=== PATIENT | male | born 1950 | race American Indian/Alaskan Native ===

== ENCOUNTER 2016-12-14 20:56 | Emergency (ER) | payer MEDICARE ==
[2016-12-14] MEDS ORDERED: BENADRYL IV ONE (21:56)
[2016-12-14] MEDS ORDERED: PEPCID IV ONE (21:56)
--- NOTE | 2016-12-14 21:57 | Emergency Department Report ---
ED General Adult HPI - General Chief complaint: Allergic Reaction Stated complaint: BEE STINGS Time Seen by Provider: 12/14/16 21:16 Source: patient, RN notes reviewed Mode of arrival: Ambulatory Limitations: No Limitations - History of Present Illness Initial comments: Primary care Dr.: Dr. Yael Scales This is a 66-year-old male. He is previously unknown to me. He presented to the ER with multiple insect stings which he sustained a few hours prior to presentation. Past medical history includes depression, neuropathy, parkinsonism, hypertension, high cholesterol. He denies headache, neck pain, chest pain, abdominal pain and shortness of breath. He reports multiple stings on his back, neck, legs. There is specifically no stridor, dysphonia, difficulty speaking, difficulty breathing. He has been stung by yellow jackets in the past, denies a history of anaphylaxis. No other complaints. -: Sudden Location: back, left, right, upper extremity, lower extremity Severity scale (0 -10): 10 Quality: other (stinging) Consistency: constant Improves with: none Worsens with: none Associated Symptoms: denies other symptoms - Related Data Home Medications Medication Instructions Recorded Confirmed Last Taken Carbidopa/Levodopa 25-100 [Sinemet 1 tab PO TID 05/15/14 12/14/16 Unknown 25/100] Gabapentin [Gabapentin] 1 tab PO TID 05/15/14 12/14/16 Unknown Paroxetine HCl [Paroxetine] 1 tab PO DAILY 05/15/14 12/14/16 Unknown oxyCODONE /ACETAMINOPHEN [Percocet 1 tab PO TID PRN 12/14/16 12/14/16 Unknown 5/325] Previous Rx's Medication Instructions Recorded Last Taken Type EPINEPHrine [Epipen 2-Aldair] 0.3 mg IM DAILY PRN #2 ml 12/14/16 Unknown Rx Famotidine [Pepcid] 20 mg PO BID #10 tablet 12/14/16 Unknown Rx diphenhydrAMINE [Benadryl] 50 mg PO Q8HR PRN #20 capsule 12/14/16 Unknown Rx Allergies Allergy/AdvReac Type Severity Reaction Status Date / Time No Known Allergies Allergy Unverified 05/16/13 10:42 ED Review of Systems ROS: Stated complaint: BEE STINGS Other details as noted in HPI Constitutional: denies: fever, malaise Eyes: denies: vision change ENT: denies: epistaxis Respiratory: denies: cough Cardiovascular: denies: chest pain Gastrointestinal: denies: abdominal pain Genitourinary: as per HPI Skin: rash, lesions Psychiatric: as per HPI ED Past Medical Hx - Past Medical History Previous Medical History?: Yes Hx Hypertension: Yes Hx Diabetes: No Hx Arthritis: Yes Additional medical history: high cholesterol. mild depression. ulcers. neuropathy. Parkinsons - Surgical History Past Surgical History?: Yes Hx Cholecystectomy: Yes Additional Surgical History: bilateral rotater cuff repair - Social History Smoking Status: Never Smoker Substance Use Type: None - Medications Home Medications: Home Medications Medication Instructions Recorded Confirmed Last Taken Type Carbidopa/Levodopa 25-100 [Sinemet 1 tab PO TID 05/15/14 12/14/16 Unknown History 25/100] Gabapentin [Gabapentin] 1 tab PO TID 05/15/14 12/14/16 Unknown History Paroxetine HCl [Paroxetine] 1 tab PO DAILY 05/15/14 12/14/16 Unknown History EPINEPHrine [Epipen 2-Aldair] 0.3 mg IM DAILY PRN #2 ml 12/14/16 Unknown Rx Famotidine [Pepcid] 20 mg PO BID #10 tablet 12/14/16 Unknown Rx diphenhydrAMINE [Benadryl] 50 mg PO Q8HR PRN #20 capsule 12/14/16 Unknown Rx oxyCODONE /ACETAMINOPHEN [Percocet 1 tab PO TID PRN 12/14/16 12/14/16 Unknown History 5/325] ED Physical Exam - General Limitations: No Limitations General appearance: alert, in no apparent distress - Head Head exam: Present: atraumatic, normocephalic - Eye Eye exam: Present: normal appearance, EOMI - ENT ENT exam: Present: normal exam, normal orophraynx, mucous membranes moist, normal external ear exam, other (there is no stridor or dysphonia. The patient is speaking in full sentences. There is no respiratory distress.) - Neck Neck exam: Present: normal inspection, full ROM. Absent: tenderness, meningismus - Respiratory Respiratory exam: Present: normal lung sounds bilaterally. Absent: respiratory distress, wheezes, rales, rhonchi, stridor, chest wall tenderness, accessory muscle use, decreased breath sounds, prolonged expiratory - Cardiovascular Cardiovascular Exam: Present: regular rate, normal rhythm, normal heart sounds. Absent: bradycardia, tachycardia, irregular rhythm, systolic murmur, diastolic murmur, rubs, gallop - GI/Abdominal GI/Abdominal exam: Present: soft, normal bowel sounds. Absent: distended, tenderness, guarding, rebound, rigid, pulsatile mass - Rectal Rectal exam: Present: deferred - Extremities Exam Extremities exam: Present: normal inspection, full ROM, normal capillary refill. Absent: tenderness, pedal edema, joint swelling, calf tenderness - Back Exam Back exam: Present: normal inspection, full ROM. Absent: tenderness, CVA tenderness (R), CVA tenderness (L), muscle spasm, paraspinal tenderness, vertebral tenderness - Neurological Exam Neurological exam: Present: alert, oriented X3, other (Extraocular movements intact. Tongue midline. No facial droop. Facial sensation intact to light touch in the V1, V2, V3 distribution bilaterally. 5 and 5 strength in 4 extremities.. Sensation is intact to light touch in 4 extremities.). Absent: motor sensory deficit - Psychiatric Psychiatric exam: Present: normal affect, normal mood - Skin Skin exam: Present: warm, rash, erythema, other (multiple areas of nontender blanching erythema. There is no streaking, crepitus or pus. No visualized fingers are noted in the skin.) ED Course Vital Signs 12/14/16 12/14/16 12/14/16 20:59 21:07 21:12 Temperature 98.7 F 98.7 F Pulse Rate 114 H 114 H 91 H Respiratory 22 22 22 Rate Blood Pressure 131/91 Blood Pressure 131/91 [Right] O2 Sat by Pulse 94 94 Oximetry 12/14/16 12/14/16 12/14/16 21:21 21:30 21:41 Temperature Pulse Rate 102 H 91 H 91 H Respiratory 29 H 20 24 Rate Blood Pressure 133/88 137/83 137/83 Blood Pressure [Right] O2 Sat by Pulse 94 95 95 Oximetry 12/14/16 12/14/16 12/14/16 21:51 22:00 22:11 Temperature Pulse Rate 89 87 81 Respiratory 20 24 14 Rate Blood Pressure 137/83 142/85 142/85 Blood Pressure [Right] O2 Sat by Pulse 94 94 97 Oximetry 12/14/16 12/14/16 12/14/16 22:21 22:30 22:41 Temperature Pulse Rate 83 83 84 Respiratory 15 26 H 23 Rate Blood Pressure 142/85 155/87 155/87 Blood Pressure [Right] O2 Sat by Pulse 97 96 96 Oximetry 12/14/16 12/14/16 22:51 23:01 Temperature Pulse Rate 84 83 Respiratory 24 25 H Rate Blood Pressure 143/88 143/88 Blood Pressure [Right] O2 Sat by Pulse 96 96 Oximetry - Reevaluation(s) Reevaluation #1: 12/14/16 22:07 Differential diagnosis: Multiple insect stings Assessment and plan: 66-year-old male with multiple insect stings. He has no stridor or dysphonia, he is not wheezing. Multiple areas of localized erythema all of which are nontender and blanching, most likely consistent with mild localized reaction. Given her advanced age, I believe the patient requires steroids, especially given the risk of steroid psychosis, hyperglycemia, and osteoporosis/fracture. This is discussed with the patient and his , and through shared decision making we agreed to not give steroids. The patient is somewhat pleuritic, and will be given Pepcid and Benadryl for symptom relief. We will observe him. His tachycardia has resolved. He has no complaint of airway collapse, and there is no clinical evidence of stridor or dysphonia. Reevaluation #2: 12/14/16 22:57 reassessed. Heart rate 84 bpm. Blood pressure 155/87. Feels improved. Patient will be discharged. Return precautions are reviewed. patient and family verbalized understanding. Critical care attestation.: If time is entered above; I have spent that time in minutes in the direct care of this critically ill patient, excluding procedure time. ED Disposition Clinical Impression: Insect sting Disposition: DC-01 TO HOME OR SELFCARE Is pt being admited?: No Does the pt Need Aspirin: No Condition: Stable Instructions: Insect Bite or Sting (ED) Additional Instructions: Take the medications as directed. If taking the Benadryl, do not drive, consume alcohol, or make important decisions. Use the epinephrine pen only if you develop the inability to speak, or bruits. If taking the epinephrine pen, contact 911 right away. Please avoid exposure to insects. Follow up with your primary care doctor within the next 2-3 weeks. Return to the ER right away with inability to speak, inability to breathe, fevers, chills, chest pain, shortness of breath, confusion. Prescriptions: diphenhydrAMINE [Benadryl] 50 mg PO Q8HR PRN #20 capsule PRN Reason: Allergic Reaction EPINEPHrine [Epipen 2-Aldair] 0.3 mg IM DAILY PRN #2 ml PRN Reason: Allergic Reaction Famotidine [Pepcid] 20 mg PO BID #10 tablet Referrals: PRIMARY CARE, [Primary Care Provider] - 3-5 Days WENDI SCALES MD [Staff Physician] - 3-5 Days
[2016-12-14 23:02] VITALS: BP 143/88
== END 2016-12-14 23:35 | disposition home or self-care (01) ==
LOC: ED 20:56
DX: S20.469A Insect bite (nonvenomous) of unspecified back wall of thorax, initial encounter (principal); S80.862A Insect bite (nonvenomous), left lower leg, initial encounter; S80.861A Insect bite (nonvenomous), right lower leg, initial encounter; S10.96XA Insect bite of unspecified part of neck, initial encounter; I10 Essential (primary) hypertension; W57.XXXA Bitten or stung by nonvenomous insect and other nonvenomous arthropods, initial encounter; Y93.9 Activity, unspecified; Y92.9 Unspecified place or not applicable; Y99.9 Unspecified external cause status
CPT/HCPCS: 96374; 96375; 99282; J1200

== ENCOUNTER 2017-04-06 06:04 | Day surgery (SDC) | payer MEDICARE ==
[~2017-04-06 06:04] MED LIST: TETRACAINE 0.5% OD PRN
[2017-04-06] MEDS ORDERED: TETRACAINE 0.5% OD ONE (06:39)
[2017-04-06] MEDS: VIGAMOX OD SCH ×3 (07:25→07:35)
[2017-04-06] MEDS: MYDRIACYL OD SCH ×3 (07:25→07:35)
[2017-04-06] MEDS: AK-Dilate OD SCH ×3 (07:25→07:35)
--- NOTE | 2017-04-06 07:41 | Anesthesia Consultation ---
Anesthesia Consult and Med Hx Date of service: 04/06/17 - Airway Anesthetic Teeth Evaluation: Poor ROM Head & Neck: Inadequate Mental/Hyoid Distance: Adequate Mallampati Class: Class III Intubation Access Assessment: Possibly Difficult - Pulmonary Exam CTA: Yes - Cardiac Exam Cardiac Exam: RRR - Pre-Operative Health Status ASA Pre-Surgery Classification: ASA3 Proposed Anesthetic Plan: MAC - Pre-Anesthesia Comment Pre-Anesthesia Comments: Parkensons disease. - Pulmonary Hx Smoking: No Hx Sleep Apnea: No (STEFANI PRE SCREEN LOW RISK) - Cardiovascular System Hx Hypertension: No - Central Nervous System Hx Back Pain: Yes - Other Systems Hx Cancer: No
--- NOTE | 2017-04-06 07:42 | Anesthesia Day of Surgery ---
Anesthesia Day of Surgery - Day of Surgery Patient Examined: Yes Patient H&P Reviewed: Yes Patient is NPO: Yes
[2017-04-06] MEDS ORDERED: SUBLIMAZE ONE (08:09)
[2017-04-06] MEDS ORDERED: VERSED ONE (08:09)
[2017-04-06] MEDS ORDERED: PRED FORTE 1% OD SCH (08:56)
--- NOTE | 2017-04-06 08:58 | Operative Report ---
Operative Report Operative Report: PATIENT'S NAME: DATE OF : DATE OF SURGERY: 04/06/2017 PREOPERATIVE DIAGNOSIS: Cataract right eye POSTOPERATIVE DIAGNOSIS: Same OPERATIVE PROCEDURE: Phacoemulsification with intraocular lens implantation, right eye SURGEON: Larissa Reynolds M.D. DIRECTOR TECHNICAL SURGEON: Alan Lens: [id number] 23.0 D ANESTHESIA: Monitored anesthesia care in combination with topical and intracameral anesthesia because of the established specific risk of reflux, arrhythmias, or anxiety attacks associated with ocular manipulation, as well as the difficulty of the warm in to manage such potentially catastrophic events while simultaneously attempting to complete the surgical procedure and was deemed necessary for the patient's safety to have an Waistband Setter Lockstitch present during the procedure whenever possible. An Waistband Setter Lockstitch was utilized to regulate the intravenous sedation of the patient so the patient was cooperative yet not asleep in order for the patient to successfully maintain fixation of the eye on the operating light of the microscope. COMPLICATIONS: No surgical complications No blood loss. ALLERGIES: No known drug allergies PROGNOSIS: Excellent INDICATIONS FOR SURGERY: The patient is undergoing surgery in the hopes of eliminating or improving these visual difficulties. PROCEDURE: After arriving at the surgery center, the patient was given topical anesthetic and dilating drops, as noted in the record. The patient was then taken into the operating room and given more anesthetic drops. The eyelids , lashes, and lid margins were scrubbed with Betadine solution, and the patient was draped. The Nurse Waistband Setter Lockstitch administered IV sedation and monitored the patient during the procedure. The eye was then fixated with a 0.12, and a stab incision was made in the peripheral clear cornea into the anterior chamber. This was made on my left side. Viscoelastic was next used to fill the anterior chamber. The eye was once again fixated with the 0.12 forceps and a keratome was used make an incision in clear cornea peripherally on my right hand side temporally. The capsule forceps were used to open the central anterior capsule and then make a continuous round capsulotomy. Hydrodissection was carried out utilizing a cannula and balanced salt solution to delineate the cortical material from the capsule and the nucleus from the cortical material. The phaco tip was introduced into the eye and used to remove the anterior cortical material in the area of the capsulotomy. Then the phaco tip was buried into the nucleus, and a chopping instrument was introduced into the eye and used to provide countertraction in the nucleus between this instrument and the phaco tip fracturing the nucleus. This procedure was repeated multiple times, providing multiple small segments of the lens, and then the phaco tip was used to remove each of these segments. An I/A tip was then used to remove the remaining cortex. The anterior chamber was refilled with viscoelastic. An one-piece, acrylic intraocular lens was then placed into an inserting cartridge. The tip of the inserting cartridge was introduced into the keratome incision and into the anterior chamber. The implant was gently advanced through the cartridge and into the eye, where it unfolded, and both haptics were placed in the capsular bag, where it centered nicely and appeared to be well fixated. After placement of the intraocular lens, the I~and~A handpiece was placed back into the eye and used to remove the viscoelastic, including viscoelastic that was behind the optic of the intraocular lens. The anterior chamber was then filled with balanced salt solution, and hydration of the wound was used to cause swelling of the wound and more appropriate watertight closure. When the wound was found to be firm, the patient was asked to comment on how bright the light was. If there was no light perception at all or if the light was substantially dimmer than during the rest of the surgery, the amount of fluid in the eye was decompressed to lower the intraocular pressure until the patient could see the bright light again. This was done to avoid any damage or decreased blood flow to the optic nerve. MEDICATIONS APPLIED AT END OF SURGERY: One drop of Pred Forte and Vigamox The patient was given a shield to wear at night and was instructed not to rub or push on the eye. DISCHARGE SUMMARY: The patient was released in stable condition. The patient and those with the patient were given a written sheet of postoperative instructions and counseling on any abnormal laboratory studies. The patient is to see us tomorrow for follow-up in the office and is to call immediately for any difficulties. Larissa Reynolds M.D. Date
--- NOTE | 2017-04-06 08:59 | Short Stay Summary ---
Short Stay Documentation Date of service: 04/06/17 - History H&P: obtained from office - Allergies and Medications Current Medications: Allergies No Known Allergies Allergy (Verified 04/03/17 15:28) Home Medications Medication Instructions Recorded Confirmed Last Taken Type Carbidopa/Levodopa 25-100 [Sinemet 1 tab PO TID 05/15/14 04/03/17 Unknown History 25/100] Gabapentin [Gabapentin] 300 mg PO TID 05/15/14 04/03/17 Unknown History Paroxetine HCl [Paroxetine] 40 mg PO DAILY 05/15/14 04/03/17 Unknown History oxyCODONE /ACETAMINOPHEN [Percocet 1 tab PO PRN PRN 12/14/16 04/03/17 Unknown History 5/325] Active Medications Moxifloxacin HCl (Vigamox) 1 drops OD Q5MIN MAGALIS Stop: 04/08/17 06:01 Last Admin: 04/06/17 07:35 Dose: 1 drops Phenylephrine HCl (Ak-Dilate) 1 drops OD Q5MIN MAGALIS Stop: 04/08/17 06:01 Last Admin: 04/06/17 07:35 Dose: 1 drops Prednisolone Acetate (Pred Forte 1%) 1 drops OD ONCE MAAGLIS Stop: 04/06/17 23:59 Tropicamide (Mydriacyl) 1 drops OD Q5MIN MAGALIS Stop: 04/08/17 06:01 Last Admin: 04/06/17 07:35 Dose: 1 drops - Brief post op/procedure progress note Date of procedure: 04/06/17 Pre-op diagnosis: right cataract Post-op diagnosis: same Procedure: Phacoemulsification with intraocular lens insertion right eye Anesthesia: MAC Surgeon: MAIN VELASQUEZ Estimated blood loss: none Pathology: none Condition: stable - Disposition Condition at discharge: Good Disposition: DC-01 TO HOME OR SELFCARE - Discharge Diagnoses (1) Cataract Status: Acute Qualifiers: Cataract type: age-related Age-related cataract type: nuclear Infantile/ juvenile cataract type: I Traumatic cataract type: T Complicated cataract type: C Secondary cataract type: S Laterality: right Qualified Code(s): H25.11 - Age-related nuclear cataract, right eye Short Stay Discharge Plan Additional Instructions: DR. VELASQUEZ'S POST OP INSTRUCTIONS GIVEN. Follow up with: WENDI SCALES MD [Primary Care Provider] - 7 Days Forms: Outpatient Surgery DC Inst.
--- NOTE | 2017-04-06 09:00 | Post Anesthesia Evaluation ---
- Post Anesthesia Evaluation Patient Participated: Yes Airway Patent: Yes Stable Respiratory Function: Yes Temp > 96.8F: Yes Pain Manageable: Yes Adequeate Hydration: Yes Anesthesia Complications: No
[2017-04-06 09:28] VITALS: BP 152/80
[2017-04-06] MEDS ORDERED: PRED FORTE 1% ONE (13:07)
== END 2017-04-06 09:20 | disposition home or self-care (01) ==
LOC: OR 06:04
DX: H25.11 Age-related nuclear cataract, right eye (principal); M19.90 Unspecified osteoarthritis, unspecified site; G20 Parkinson's disease
CPT/HCPCS: 66984; J2250; J3010; V2632

== ENCOUNTER 2018-11-17 18:00 | Emergency (ER) | payer MEDICARE ==
[2018-11-17 18:08] VITALS: BP 148/78
--- NOTE | 2018-11-17 18:08 | Emergency Department Report ---
Blank Doc - Documentation Documentation: 68 y o male presents with left sided shoulder back pain x after he had been in the yard working admits arthritis of left hip denies fall, trauma or injuries
--- NOTE | 2018-11-17 18:57 | XRay Report ---
PROCEDURE: XR HIP 2-3V LT TECHNIQUE: AP view of the pelvis and single cone-down view of the left hip. HISTORY: LT HIP pain COMPARISONS: None . FINDINGS: No evidence for acute fracture or dislocation is seen. The soft tissues are unremarkable. Bony minera lization is normal. There is severe [id number] joint space narrowing in the right hip superiorly related to osteoarthri tis. IMPRESSION: No acute soft tissue or bony abnormality noted in the left hip. Severe [id number] joint space narro wing of the right hip related to arthritis This document is electronically signed by Anel Patel MD., November 17 2018 06:54:49 PM ET
[2018-11-17] MEDS ORDERED: DECADRON IM ONE (19:02)
[2018-11-17] MEDS ORDERED: TORADOL IM ONE (19:02)
--- NOTE | 2018-11-17 19:29 | Emergency Department Report ---
ED Lower Extremity HPI - General Chief Complaint: Extremity Problem,Nontraumatic Stated Complaint: L SIDE PAIN Time Seen by Provider: 11/17/18 18:04 Source: patient Mode of arrival: Wheelchair Limitations: No Limitations - History of Present Illness Initial Comments: Patient is a 59 [place] male with a history of arthritis currently followed by pain management treated with Oxycodone gabapentin and Senokot states he was working in his yard 2 days ago started to have increased left hip soreness and pain chronic arthritis pain is in his right hip left hip is more exacerbated today patient denies fall injury or trauma is no numbness or weakness no swelling no paralysis we'll obtain x-ray steroid and inserted MD Complaint: other (left hip pain) Onset/Timin -: days(s) Injury: Hip: Left Type of Injury: hyperflexion, other (overuse ) Place: home Severity: moderate Severity scale (0 -10): 5 Improves With: rest Worsens With: weight bearing, movement, palpation 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 ) Associated Symptoms: able to partially bear weight - Related Data Home Medications Medication Instructions Recorded Confirmed Last Taken Carbidopa/Levodopa 25-100 [Sinemet 1 tab PO TID 05/15/14 04/03/17 04/05/17 25/100] Gabapentin 300 mg PO TID 05/15/14 04/03/17 04/05/17 PARoxetine HCl [Paroxetine] 40 mg PO DAILY 05/15/14 04/03/17 04/05/17 oxyCODONE /ACETAMINOPHEN [Percocet 1 tab PO PRN PRN 12/14/16 04/03/17 04/05/17 5/325] Previous Rx's Medication Instructions Recorded Last Taken Type Diclofenac 1% [Diclofenac 1% 1 applicatio TP QID PRN #1 tube 11/17/18 Unknown Rx topical gel] predniSONE [Deltasone] 40 mg PO QDAY 5 Days #10 tab 11/17/18 Unknown Rx Allergies Allergy/AdvReac Type Severity Reaction Status Date / Time No Known Allergies Allergy Verified 04/03/17 15:28 ED Review of Systems ROS: Stated complaint: L SIDE PAIN Other details as noted in HPI Constitutional: denies: chills, fever Eyes: denies: eye pain, eye discharge, vision change ENT: denies: ear pain, throat pain Respiratory: denies: cough, shortness of breath, wheezing Cardiovascular: denies: chest pain, palpitations Endocrine: no symptoms reported Gastrointestinal: denies: abdominal pain, nausea, diarrhea Genitourinary: denies: urgency, dysuria Musculoskeletal: back pain, arthralgia, myalgia, other (left hip pain /10 ) Skin: denies: rash, lesions Neurological: denies: headache, weakness, paresthesias Psychiatric: denies: anxiety, depression Hematological/Lymphatic: denies: easy bleeding, easy bruising ED Past Medical Hx - Past Medical History Previous Medical History?: Yes Hx Hypertension: No Hx Diabetes: No Hx GERD: Yes Hx Arthritis: Yes Hx HIV: No Additional medical history: high cholesterol. mild depression. ulcers. neuropathy. Parkinsons - Surgical History Past Surgical History?: Yes Hx Cholecystectomy: Yes Additional Surgical History: bilateral rotater cuff repair - Social History Smoking Status: Never Smoker Substance Use Type: Alcohol, Prescribed - Medications Home Medications: Home Medications Medication Instructions Recorded Confirmed Last Taken Type Carbidopa/Levodopa 25-100 [Sinemet 1 tab PO TID 05/15/14 04/03/17 04/05/17 History 25/100] Gabapentin 300 mg PO TID 05/15/14 04/03/17 04/05/17 History PARoxetine HCl [Paroxetine] 40 mg PO DAILY 05/15/14 04/03/17 04/05/17 History oxyCODONE /ACETAMINOPHEN [Percocet 1 tab PO PRN PRN 12/14/16 04/03/17 04/05/17 History 5/325] Diclofenac 1% [Diclofenac 1% 1 applicatio TP QID PRN #1 tube 11/17/18 Unknown Rx topical gel] predniSONE [Deltasone] 40 mg PO QDAY 5 Days #10 tab 11/17/18 Unknown Rx ED Physical Exam - General Limitations: No Limitations General appearance: alert, in no apparent distress - Head Head exam: Present: atraumatic, normocephalic - Eye Eye exam: Present: normal appearance, PERRL, EOMI Pupils: Present: normal accommodation - ENT ENT exam: Present: mucous membranes moist - Neck Neck exam: Present: normal inspection, full ROM. Absent: tenderness, meningismus, lymphadenopathy, thyromegaly - Expanded Neck Exam Expanded Neck exam: Absent: tenderness (no postererior vertebral point tenderness ), midline deformity, anterior neck swelling, thyroid mass, carotid bruit, tracheal deviation - Respiratory Respiratory exam: Present: normal lung sounds bilaterally. Absent: respiratory distress, wheezes, stridor, chest wall tenderness - Cardiovascular Cardiovascular Exam: Present: regular rate, normal rhythm, normal heart sounds. Absent: systolic murmur, diastolic murmur, rubs, gallop - GI/Abdominal GI/Abdominal exam: Present: soft, normal bowel sounds. Absent: distended, tenderness, guarding, rebound, rigid, bruit, hernia - Rectal Rectal exam: Present: deferred - Extremities Exam Extremities exam: Present: normal inspection, full ROM, tenderness (left lateral hip ), normal capillary refill. Absent: pedal edema, joint swelling, calf tenderness - Expanded Lower Extremity Exam Left Hip exam: Present: full ROM, tenderness. Absent: swelling, abrasion, laceration, ecchymosis, deformity, crepidus, erythema, external rotation, internal rotation, shortening, pelvic stability Upper Leg exam: Present: normal inspection, full ROM. Absent: tenderness Knee exam: Present: normal inspection, full ROM. Absent: tenderness Lower Leg exam: Present: normal inspection, full ROM. Absent: tenderness Ankle exam: Present: normal inspection, full ROM. Absent: tenderness Foot/Toe exam: Present: normal inspection, full ROM. Absent: tenderness, swelling Neuro vascular tendon exam: Absent: pulse deficit, motor deficit, sensory deficit, tendon deficit Gait: Positive: observed and limited by pain - Back Exam Back exam: Present: normal inspection, full ROM, tenderness (mild paraspinus mucle tenderness to deep palpation), muscle spasm, paraspinal tenderness. Absent: CVA tenderness (R), CVA tenderness (L), vertebral tenderness, rash noted - Neurological Exam Neurological exam: Present: alert, oriented X3, CN II-XII intact, normal gait, reflexes normal. Absent: motor sensory deficit - Expanded Neurological Exam Expanded Patient oriented to: Present: person Speech: Present: fluid speech Sensory exam: Lower Extremity Light Touch: Normal, Lower Extremity Pin Prick: Normal, Lower Extremity Temperature: Normal, LE 2 Point Discrimination: Normal Motor strength exam: RUE: 5, LUE: 5, RLE: 5, LLE: 5 DTR: knee (R): 2+, knee (L): 2+, ankle (R): 2+, ankle (L): 2+ Best Eye Response (Linda): (4) open spontaneously Best Motor Response ([place]): (6) obeys commands Best Verbal Response (Linda): (5) oriented Linda Total: 15 - Psychiatric Psychiatric exam: Present: normal affect, normal mood - Skin Skin exam: Present: warm, dry, intact, normal color. Absent: rash ED Course Vital Signs 11/17/18 18:05 Temperature 98.3 F Pulse Rate 82 Respiratory 18 Rate Blood Pressure 148/78 O2 Sat by Pulse 100 Oximetry ED Lower Extremity MDM - Radiology Data Radiology results: report reviewed, image reviewed Xray: Severe bone no bone arthritis left hip , plan: short burst prednisone , co ntinue oxycycodone, voltaren gel pt will follow up with [facility] in 2 days return to ed if symptoms worsen, pt verbalized agreement and understanding if discharge plan. pt is ambulatory with gallegos to baseline at this time pain is improved. pt with nad at this time. Critical care attestation.: If time is entered above; I have spent that time in minutes in the direct care of this critically ill patient, excluding procedure time. ED Disposition Clinical Impression: Arthritis, Arthritis of left hip Disposition: DC-01 TO HOME OR SELFCARE Is pt being admited?: No Does the pt Need Aspirin: No Condition: Stable Instructions: Arthralgia (ED), Musculoskeletal Pain (ED) Prescriptions: predniSONE [Deltasone] 40 mg PO QDAY 5 Days #10 tab Diclofenac 1% [Diclofenac 1% topical gel] 1 applicatio TP QID PRN #1 tube PRN Reason: pain Referrals: RAMIRO DIAZ MD [Primary Care Provider] - 3-5 Days WENDI SCALES MD [Staff Physician] - 3-5 Days Forms: Work/School Release Form(ED) Time of Disposition: 19:48
== END 2018-11-17 20:05 | disposition home or self-care (01) ==
LOC: ED 18:00
DX: M16.12 Unilateral primary osteoarthritis, left hip (principal); K21.9 Gastro-esophageal reflux disease without esophagitis; E78.00 Pure hypercholesterolemia, unspecified; F32.9 Major depressive disorder, single episode, unspecified; Z90.49 Acquired absence of other specified parts of digestive tract; Z86.69 Personal history of other diseases of the nervous system and sense organs
CPT/HCPCS: 73502; 96372; 99283; J1100; J1885

== ENCOUNTER 2020-03-15 13:32 | Emergency (ER) | payer MEDICARE ==
[2020-03-15 14:03] VITALS: BP 105/65
[2020-03-15 15:00] LABS: Basophils % (Auto) 0.3 % (0.0-1.8); Eosinophils # (Auto) 0.2 K/mm3 (0.0-0.4); Eosinophils % (Auto) 2.5 % (0.0-4.3); Hematocrit 21.9 % (35.5-45.6); Hemoglobin 7.2 gm/dl (11.8-15.2); Lymphocytes # (Auto) 0.9 K/mm3 (1.2-5.4); Lymphocytes % (Auto) 9.8 % (13.4-35.0); Mean Corpuscular HGB Conc 33 % (32-34); Mean Corpuscular Volume 77 fl (84-94); Monocytes # (Auto) 0.9 K/mm3 (0.0-0.8); Monocytes % (Auto) 10.1 % (0.0-7.3); Platelet Count 600 K/mm3 (140-440); Red Blood Count 2.85 M/mm3 (3.65-5.03); Red Cell Distribution Width 17.6 % (13.2-15.2)
[2020-03-15 15:03] LABS: Amorphous Crystals,Urine Few; Bilirubin,Urine NEG (Negative); Blood,Urine NEG (Negative); Color,Urine Yellow (Yellow); Mucus,Urine FEW /HPF; Protein,Urine <15 mg/dL mg/dL (Negative); Urobilinogen,Urine < 2.0 mg/dL (<2.0); WBC,Urine < 1.0 /HPF (0.0-6.0)
[2020-03-15 15:14] LABS: Alanine Aminotransferase 9 units/L (7-56); Albumin 3.7 g/dL (3.9-5); BUN/Creatinine Ratio 25; Blood Urea Nitrogen 20 mg/dL (9-20); Calcium 9.4 mg/dL (8.4-10.2); Hemolysis Index 5
== END 2020-03-15 18:55 | disposition left against medical advice (07) ==
LOC: ED 13:32
DX: R10.9 Unspecified abdominal pain (principal); Z53.21 Procedure and treatment not carried out due to patient leaving prior to being seen by health care provider
CPT/HCPCS: 36415; 80053; 81001; 85025

== ENCOUNTER 2020-04-11 10:10 | Inpatient (IN) | payer MEDICARE, OTHER ==
[2020-04-11 10:37] LABS: Basophils % (Auto) 0.3 % (0.0-1.8); Eosinophils % (Auto) 0.4 % (0.0-4.3); Hematocrit 28.3 % (35.5-45.6); Hemoglobin 8.5 gm/dl (11.8-15.2); Lymphocytes # (Auto) 0.8 K/mm3 (1.2-5.4); Mean Corpuscular HGB Conc 30 % (32-34); Mean Corpuscular Volume 70 fl (84-94); Monocytes # (Auto) 0.6 K/mm3 (0.0-0.8); Monocytes % (Auto) 6.4 % (0.0-7.3); Platelet Count 531 K/mm3 (140-440); Red Blood Count 4.02 M/mm3 (3.65-5.03); Red Cell Distribution Width 17.9 % (13.2-15.2)
--- NOTE | 2020-04-11 10:54 | Emergency Department Report ---
ED Abdominal Pain HPI - General Chief Complaint: Abdominal Pain Stated Complaint: STOMACH PAIN Time Seen by Provider: 04/11/20 10:41 Source: patient Mode of arrival: Wheelchair Limitations: No Limitations - History of Present Illness Initial Comments: This is a 69-year old man who is an exceptionally poor historian. He states that he lives with his . He states that his abdomen has "gone from bad to worse. 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 He has been admitted to this facility for evaluation thereof. He tells me he does not take any current medications, has no primary care provider and is not following up with a GI doctor. He cannot describe his abdominal pain. He says that it is somewhat diffuse but in the upper abdomen. He has not been vomiting. He is not complaining of nausea. He states that his stool is chronically hard and he takes laxatives. He denies any signs of GI bleeding or black or dark stool. He states that he used to weigh 180 pounds and now he is 130. Previous discharge summary: (1) Gastric outlet obstruction Current Visit: Yes Status: Acute Plan to address problem: On clear liquids Had EGD yesterday EGD: hiatal hernia - solid food proximal stomach - large irregular pyloric channel ulcer w/ deformed appearance and wide opening (bx's) - pinpoint stricture distal duodenal bulb w/ ulcer surrounding, Could not be dilated (2) Dehydration, severe Current Visit: Yes Status: Acute Plan to address problem: IV fluids for now (3) Parkinsonism Current Visit: Yes Status: Chronic Qualifiers: Parkinsonism type: Parkinson's disease Qualified Code(s): G20 - Parkinson's disease Plan to address problem: Continue Sinemet (4) Peptic ulcer disease Current Visit: Yes Status: Chronic Plan to address problem: IV Protonix for now Protonix as outpatient in the granule form (5) Hypertension Current Visit: Yes Status: Chronic Qualifiers: Hypertension type: essential hypertension Qualified Code(s): I10 - Essential (primary) hypertension Plan to address problem: Continue antihypertensives 6)Anemia Chronic blood loss sec to PUD. Started on PPI's MD Complaint: abdominal pain -: Gradual, month(s) - Related Data Home Medications Medication Instructions Recorded Confirmed Last Taken Carbidopa/Levodopa 25-100 [Sinemet 1 tab PO TID 05/15/14 03/05/19 03/06/19] Previous Rx's Medication Instructions Recorded Last Taken Type Diclofenac 1% [Diclofenac 1% 1 applicatio TP QID PRN #1 tube 11/17/18 03/06/19 Rx topical gel] Carbidopa/Levodopa 25-100 [Sinemet 1 each PO TID #90 tablet 01/07/20 [place] Rx 25100] Gabapentin 300 mg PO TID #90 capsule 01/07/20 Unknown Rx HYDROcodone/APAP 7.5-325 [[place] 1 each PO BID #18 tablet 01/07/20 Unknown Rx 7.5-325 mg TAB] PARoxetine HCL [PARoxetine] 40 mg PO DAILY #30 01/07/20 Unknown Rx Allergies Allergy/AdvReac Type Severity Reaction Status Date / Time No Known Allergies Allergy Verified 03/15/20 13:57 ED Review of Systems ROS: Stated complaint: STOMACH PAIN Other details as noted in HPI Constitutional: denies: chills, fever Eyes: denies: eye pain, eye discharge, vision change ENT: denies: ear pain, throat pain Respiratory: denies: cough, shortness of breath, wheezing Cardiovascular: denies: chest pain, palpitations Endocrine: no symptoms reported Gastrointestinal: abdominal pain. denies: nausea, diarrhea Genitourinary: denies: urgency, dysuria Musculoskeletal: denies: back pain, arthralgia Skin: denies: rash, lesions Neurological: denies: headache, weakness, paresthesias Psychiatric: denies: anxiety, depression Hematological/Lymphatic: denies: easy bleeding, easy bruising ED Past Medical Hx - Past Medical History Previous Medical History?: Yes Hx Hypertension: No Hx Diabetes: No Hx GERD: Yes Hx Liver Disease: No Hx Renal Disease: No Hx Arthritis: Yes Hx HIV: No Additional medical history: high cholesterol. mild depression. ulcers. neuropathy. Parkinsons - Surgical History Past Surgical History?: Yes Hx Cholecystectomy: Yes (2013) Additional Surgical History: bilateral rotater cuff repair - Social History Smoking Status: Never Smoker - Medications Home Medications: Home Medications Medication Instructions Recorded Confirmed Last Taken Type Carbidopa/Levodopa 25-100 [Sinemet 1 tab PO TID 05/15/14 03/05/19 03/06/19 History ] Diclofenac 1% [Diclofenac 1% 1 applicatio TP QID PRN #1 tube 11/17/18 03/05/19 03/06/19 Rx topical gel] Carbidopa/Levodopa 25-100 [Sinemet 1 each PO TID #90 tablet 01/07/20 Unknown Rx 25/100] Gabapentin 300 mg PO TID #90 capsule 01/07/20 Unknown Rx HYDROcodone/APAP 7.5-325 [[place] 1 each PO BID #18 tablet 01/07/20 Unknown Rx 7.5-325 mg TAB] PARoxetine HCL [PARoxetine] 40 mg PO DAILY #30 01/07/20 Unknown Rx ED Physical Exam - General Limitations: No Limitations General appearance: alert, in no apparent distress - Head Head exam: Present: atraumatic, normocephalic - Eye Eye exam: Present: normal appearance. Absent: scleral icterus - ENT ENT exam: Present: mucous membranes moist - Neck Neck exam: Present: normal inspection - Respiratory Respiratory exam: Present: normal lung sounds bilaterally. Absent: respiratory distress - Cardiovascular Cardiovascular Exam: Present: regular rate, normal rhythm. Absent: systolic murmur, diastolic murmur, rubs, gallop - GI/Abdominal GI/Abdominal exam: Present: soft, normal bowel sounds. Absent: distended, tenderness, guarding, rebound, rigid - Rectal Rectal exam: Present: deferred - Extremities Exam Extremities exam: Present: normal inspection - Back Exam Back exam: Present: normal inspection - Neurological Exam Neurological exam: Present: alert, oriented X3, CN II-XII intact. Absent: motor sensory deficit - Psychiatric Psychiatric exam: Present: normal mood, flat affect - Skin Skin exam: Present: warm, dry, intact, normal color. Absent: rash ED Course Vital Signs 04/11/20 04/11/20 04/11/20 10:16 10:47 11:00 Temperature 98.1 F Pulse Rate 117 H 106 H Respiratory 20 18 25 H Rate Blood Pressure 109/76 118/80 O2 Sat by Pulse 100 99 Oximetry 04/11/20 04/11/20 04/11/20 11:15 11:17 11:31 Temperature Pulse Rate 102 H 120 H 96 H Respiratory 23 30 H 23 Rate Blood Pressure 118/80 118/68 118/80 O2 Sat by Pulse 100 100 Oximetry 04/11/20 04/11/20 04/11/20 11:45 12:00 12:15 Temperature Pulse Rate 99 H 103 H 105 H Respiratory 23 27 H 32 H Rate Blood Pressure 118/80 114/80 114/80 O2 Sat by Pulse 100 100 81 L Oximetry 04/11/20 04/11/20 04/11/20 12:31 13:33 14:00 Temperature Pulse Rate 111 H 114 H Respiratory 33 H 16 31 H Rate Blood Pressure 114/80 120/82 O2 Sat by Pulse 91 100 Oximetry 04/11/20 14:03 Temperature Pulse Rate Respiratory 18 Rate Blood Pressure O2 Sat by Pulse Oximetry - Reevaluation(s) Reevaluation #1: Patient found to be a bit hyperglycemic. He has mild prerenal azotemia. He did look clinically somewhat volume depleted. He is a horribly bad historian. I am going to go ahead and do a CT with oral contrast in order to determine his degree of gastric outlet obstruction and whether or not he requires admission to the hospital. 04/11/20 11:43 Reevaluation #2: Patient had massive dilatation of the stomach on CT. I placed an NG tube myself after application of viscous lidocaine. He was a bit agitated. The patient was given 1 mg of Ativan and 4 mg of Zofran prior to the procedure. Procedure itself was atraumatic and the tube was placed without difficulty. 2.3 L of dark brown fluid was evacuated. GI it will be informed of the findings. Surgery consult will be placed. Patient is admitted by Dr. Kuhn to the hospital service. Additional fluids and a Protonix drip are ordered. 04/11/20 17:06 Reevaluation #3: Discussed again with GI. They agree with care management and will consult. 04/11/20 17:29 ED Medical Decision Making - Lab Data Result diagrams: 04/11/20 10:29 04/11/20 10:29 Laboratory Results - last 24 hr 04/11/20 04/11/20 04/11/20 10:29 10:29 10:29 WBC 9.0 RBC 4.02 Hgb 8.5 L Hct 28.3 L MCV 70 L MCH 21 L MCHC 30 L RDW 17.9 H Plt Count 531 H Lymph % (Auto) 9.0 L [place] % (Auto) 6.4 Eos % (Auto) 0.4 Baso % (Auto) 0.3 Lymph # (Auto) 0.8 L [place] # (Auto) 0.6 Eos # (Auto) 0.0 Baso # (Auto) 0.0 Seg Neutrophils % 83.9 H Seg Neutrophils # 7.6 Sodium 136 L Potassium 4.1 Chloride 97.0 L Carbon Dioxide 24 Anion Gap 19 BUN 26 H Creatinine 1.0 Estimated GFR > 60 BUN/Creatinine Ratio 26 Glucose 212 H POC Glucose Calcium 9.8 Total Bilirubin 0.50 AST 18 ALT 15 Alkaline Phosphatase 62 Total Protein 7.3 Albumin 4.0 Albumin/Globulin Ratio 1.2 Lipase 39 04/11/20 12:22 WBC RBC Hgb Hct MCV MCH MCHC RDW Plt Count Lymph % (Auto) [place] % (Auto) Eos % (Auto) Baso % (Auto) Lymph # (Auto) [place] # (Auto) Eos # (Auto) Baso # (Auto) Seg Neutrophils % Seg Neutrophils # Sodium Potassium Chloride Carbon Dioxide Anion Gap BUN Creatinine Estimated GFR BUN/Creatinine Ratio Glucose POC Glucose 164 H Calcium Total Bilirubin AST ALT Alkaline Phosphatase Total Protein Albumin Albumin/Globulin Ratio Lipase - Radiology Data INDICATION / CLINICAL INFORMATION: Gastric outlet obstruction, abdominal pain, weight loss. TECHNIQUE: Axial CT imaging of abdomen and pelvis was obtained with IV contrast. Coronal and sagittal reformatted imaging obtained and reviewed. All CT scans at this location are performed using CT dose reduction for Oobafit by means of automated exposure control. COMPARISON: Prior CT abdomen/pelvis 01/05/2020 FINDINGS: CT abdomen with contrast shows massive distention of the stomach. Stomach contains both solid and liquid components. The duodenum is collapsed. The remainder of the GI tract is unremarkable. No free air or free fluid is identified within the abdomen. There is large amount of fluid within the visualized portion of the distal esophagus consistent with reflux The liver, spleen, pancreas, kidneys, and adrenal glands are unremarkable. CT pelvis with contrast does not demonstrate any pelvic mass, free fluid, or focal inflammatory change. Large amount of stool seen throughout the colon and within the rectum. The appendix is visualized and has a normal appearance. Visualized lung bases are grossly clear. There is significant degenerative change involving both hips, especially on the right. 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 Additionally, there are mild wedge compression fractures of T12 and L1 which appear old. Posterior alignment is normal without retropulsion. IMPRESSION: 1. Massive distention of the stomach for which etiology is not identified. Large amount of fluid is seen in the visualized distal esophagus consistent with reflux. 2. Moderate amount retained stool throughout the colon. Small fecal impaction noted within the rectum. 3. Abnormal appearance of the right hip with significant degenerative change and possible avascular necrosis. 4. Mild wedge compression fractures of T12 and L1 which appear chronic. Critical care attestation.: If time is entered above; I have spent that time in minutes in the direct care of this critically ill patient, excluding procedure time. ED Disposition Clinical Impression: Gastric outlet obstruction, Upper GI bleeding, Fecal impaction in rectum, Volume depletion Anemia Qualifiers: Anemia type: iron deficiency Iron deficiency anemia type: chronic blood loss Qualified Code(s): D50.0 - Iron deficiency anemia secondary to blood loss (chronic) Disposition: OP ADMIT IP TO THIS HOSP Is pt being admited?: Yes Does the pt Need Aspirin: No Condition: Stable Referrals: PRIMARY CARE, [Primary Care Provider] - 3-5 Days Time of Disposition: 17:30
[2020-04-11 10:59] LABS: Alanine Aminotransferase 15 units/L (7-56); BUN/Creatinine Ratio 26; Blood Urea Nitrogen 26 mg/dL (9-20); Calcium 9.8 mg/dL (8.4-10.2); Hemolysis Index 7
[2020-04-11] MEDS ORDERED: PANTOPRAZOLE 40 MG INJ IV ONE (11:06)
[2020-04-11] MEDS ORDERED: SODIUM CHLORIDE 0.9% 1000 ML 1,000 ML IV ONE (11:06)
[2020-04-11] MEDS ORDERED: ONDANSETRON 4 MG/2 ML INJ IV ONE ×2 (13:16→17:08)
[2020-04-11] MEDS ORDERED: MORPHINE 2 MG/1 ML INJ IV ONE (13:16)
--- NOTE | 2020-04-11 15:52 | Cat Scan Report ---
CT abdomen pelvis w con INDICATION / CLINICAL INFORMATION: Gastric outlet obstruction, abdominal pain, weight loss. TECHNIQUE: Axial CT imaging of abdomen and pelvis was obtained with IV contrast. Coronal and sagittal reformatte d imaging obtained and reviewed. All CT scans at this location are performed using CT dose reduction for ALARA by means of automated exposure control. COMPARISON: Prior CT abdomen/pelvis 01/05/2020 FINDINGS: CT abdomen with contrast shows massive distention of the stomach. Stomach contains both solid and liq uid components. The duodenum is collapsed. The remainder of the GI tract is unremarkable. No free air or free fluid is identified within the abdomen. There is large amount of fluid within the visualized portion of the distal esophagus consistent with reflux The liver, spleen, pancreas, kidneys, and adrenal glands are unremarkable. CT pelvis with contrast does not demonstrate any pelvic mass, free fluid, or focal inflammatory bhakta e. Large amount of stool seen throughout the colon and within the rectum. The appendix is visualized and has a normal appearance. Visualized lung bases are grossly clear. There is significant degenerative change involving both hips, especially on the right. A suspect avas cular necrosis is present in the right femoral head. Additionally, there are mild wedge compression f ractures of T12 and L1 which appear old. Posterior alignment is normal without retropulsion. IMPRESSION: 1. Massive distention of the stomach for which etiology is not identified. Large amount of fluid is s een in the visualized distal esophagus consistent with reflux. 2. Moderate amount retained stool throughout the colon. Small fecal impaction noted within the rectum . 3. Abnormal appearance of the right hip with significant degenerative change and possible avascular n ecrosis. 4. Mild wedge compression fractures of T12 and L1 which appear chronic. Signer Name: Trupti Rodriguez MD Signed: 04/11/2020 3:47 PM Workstation Name: [id number]
[2020-04-11] MEDS ORDERED: LORazepam 2 MG/ML VIAL ONE (16:34)
[2020-04-11] MEDS ORDERED: LIDOCAINE VISCOUS 2% 15 ML ORAL LIQD ONE (16:35)
[2020-04-11] MEDS ORDERED: ONDANSETRON 4 MG/2 ML INJ ONE (16:35)
--- NOTE | 2020-04-11 16:57 | History and Physical Report ---
History of Present Illness Chief complaint: He says his stomach is hurting History of present illness: 69 YO Male with Parkinsons Disease, HLD, GERD, OA, Neuropathy, Vascular Dementia, Cerebral Atherosclerosis presents to ED for evaluation. Patient has diminished cognition and provides minimal history. Patient detail history presented family members who are at bedside and examined and interviewed. As per family the patient has reported abdominal pain over the past 2 days with persistent symptoms over the same timeframe. Patient family also reports 50 pound weight loss in the past 3 months. Patient transported to [facility] via private vehicle for further care and evaluation of the aforementioned symptoms. Patient seen and evaluated in the emergency department. All lab and imaging studies reviewed. Patient underwent CT scan of the abdomen and pelvis which revealed a gastric outlet obstruction. Patient also found to have metabolic encephalopathy, and fecal impaction. An NG tube was placed for gastric de compression in the emergency department. Surgical team consulted in ED. GI team consulted in ED. No reports of fever, chills, chest pain, palpitation, productive cough, skin rash, recent ill contacts, or known exposure to COVID-19. Prior admission on 01/06/2020 reviewed. All medication listed at the time of admission has been reconciled. Advanced care planning conducted in ED. Past History Past Medical History: arthritis, GERD, hypertension, other (See HPI) Past Surgical History: cholecystectomy, Other (Bilateral rotator cuff surgery) Social history: , lives with family. denies: smoking, alcohol abuse, prescription drug abuse Family history: hypertension Medications and Allergies Allergies Allergy/AdvReac Type Severity Reaction Status Date / Time No Known Allergies Allergy Verified 03/15/20 13:57 Home Medications Medication Instructions Recorded Confirmed Last Taken Type Carbidopa/Levodopa 25-100 [Sinemet 1 tab PO TID 05/15/14 03/05/19 03/06/19 History 25/100] Diclofenac 1% [Diclofenac 1% 1 applicatio TP QID PRN #1 tube 11/17/18 03/05/19 03/06/19 Rx topical gel] Carbidopa/Levodopa 25-100 [Sinemet 1 each PO TID #90 tablet 01/07/20 Unknown Rx 25/100] Gabapentin 300 mg PO TID #90 capsule 01/07/20 Unknown Rx HYDROcodone/APAP 7.5-325 [[place] 1 each PO BID #18 tablet 01/07/20 Unknown Rx 7.5-325 mg TAB] PARoxetine HCL [PARoxetine] 40 mg PO DAILY #30 01/07/20 Unknown Rx Review of Systems Constitutional: weight loss, no sweats, no fatigue Ears, nose, mouth and throat: no ear pain, no ear discharge, no tinnitis, no decreased hearing, no nose pain, no nasal congestion Cardiovascular: no chest pain, no orthopnea, no palpitations, no rapid/irregular heart beat, no lightheadedness, no shortness of breath Respiratory: no cough, no cough with sputum, no hemoptysis, no shortness of breath Gastrointestinal: abdominal pain, no nausea, no vomiting, no diarrhea Genitourinary Male: no hematuria, no flank pain, no discharge, no urinary frequency, no urinary hesitancy Rectal: no pain, no bleeding Musculoskeletal: no neck stiffness, no neck pain, no arm numbness/tingling, no low back pain, no redness of joints Integumentary: no pruritis, no sores, no jaundice Neurological: no head injury, no transient paralysis, no paralysis, no weakness, no parathesias Psychiatric: no anxiety, no memory loss, no sleep disturbances, no insomnia, no hallucinations Endocrine: no cold intolerance, no heat intolerance, no polyphagia, no excessive thirst Hematologic/Lymphatic: no easy bruising, no easy bleeding, no lymphedema Allergic/Immunologic: no allergic rhinitis, no anaphylaxis Exam - Constitutional Vitals: Temp Pulse Resp BP Pulse Ox 98.1 F 114 H 18 120/82 100 04/11/20 10:16 04/11/20 14:00 04/11/20 14:03 04/11/20 14:00 04/11/20 14:00 General appearance: Present: mild distress, cachectic - EENT Eyes: Present: PERRL ENT: hearing intact, clear oral mucosa - Neck Neck: Present: supple, normal ROM - Respiratory Respiratory effort: normal Respiratory: bilateral: CTA - Cardiovascular Heart Sounds: Present: S1 & S2. Absent: rub, click - Extremities Extremities: pulses symmetrical, No edema Peripheral Pulses: within normal limits - Abdominal General gastrointestinal: Present: soft, non-tender, non-distended, normal bowel sounds Male genitourinary: Present: normal - Integumentary Integumentary: Present: clear, warm, dry - Musculoskeletal Musculoskeletal: gait normal, strength equal bilaterally - Psychiatric Psychiatric: appropriate mood/affect, intact judgment & insight - Neurologic Neurologic: CNII-XII intact, moves all extremities Results - Labs CBC & Chem 7: 04/11/20 10:29 04/11/20 10:29 Labs: Abnormal lab results 04/11/20 04/11/20 04/11/20 Range/Units 10:29 10:29 12:22 Hgb 8.5 L (11.8-15.2) gm/dl Hct 28.3 L (35.5-45.6) % MCV 70 L (84-94) fl MCH 21 L (28-32) pg MCHC 30 L (32-34) % RDW 17.9 H (13.2-15.2) % Plt Count 531 H (140-440) K/mm3 Lymph % (Auto) 9.0 L (13.4-35.0) % Lymph # (Auto) 0.8 L (1.2-5.4) K/mm3 Seg Neutrophils % 83.9 H (40.0-70.0) % Sodium 136 L (137-145) mmol/L Chloride 97.0 L (98-107) mmol/L BUN 26 H (9-20) mg/dL Glucose 212 H (75-100) mg/dL POC Glucose 164 H (70-105) mg/dL Assessment and Plan - Patient Problems (1) Gastric outlet obstruction Current Visit: Yes Status: Acute Plan to address problem: Nasogastric tube for gastric decompression, surgical team consulted, GI team consulted, surgical intervention as per the aforementioned teams. (2) Fecal impaction in rectum Current Visit: Yes Status: Acute Plan to address problem: Bowel regimen, supportive care. (3) Metabolic encephalopathy Current Visit: Yes Status: Acute Plan to address problem: Supportive care, IV fluid resuscitation therapy, BMP, repeat BMP in a.m. (4) Gastric malignant neoplasm Current Visit: Yes Status: Suspected Plan to address problem: CT scan abdomen and pelvis, surgery team consulted, supportive care. (5) Vascular dementia Current Visit: Yes Status: Acute Qualifiers: Dementia behavioral disturbance: without behavioral disturbance Qualified Code(s): F01.50 - Vascular dementia without behavioral disturbance Plan to address problem: Verbal prompting, verbal redirection, supportive care, benzodiazepine therapy as clinically indicated. (6) Parkinson's disease Current Visit: Yes Status: Acute Plan to address problem: Continue current therapy, supportive care, verbal prompting, verbal redirection, (7) DVT prophylaxis Current Visit: No Status: Acute Plan to address problem: SCD to bilateral lower extremities while in bed (8) Advance care planning Current Visit: Yes Status: Acute Plan to address problem: Disease education conducted, patient is full code, prognosis discussed, care plan discussed, patient family knowledges understanding and agreement with care plan, +30 minutes
[2020-04-11] MEDS ORDERED: SODIUM CHLORIDE 0.9% 500 ML 500 ML IV ONE (16:58)
[2020-04-11] MEDS ORDERED: ACETAMINOPHEN 325 MG TAB PO PRN (17:06)
[2020-04-11] MEDS ORDERED: ONDANSETRON 4 MG/2 ML INJ IV PRN (17:06)
[2020-04-11] MEDS ORDERED: LORazepam 2 MG/ML VIAL IV ONE (17:08)
[2020-04-11] MEDS ORDERED: SODIUM CHLORIDE 0.9% 1000 ML 1,000 ML IV SCH (17:15)
[2020-04-11] MEDS ORDERED: LIDOCAINE VISCOUS 2% 15 ML ORAL LIQD PO ONE (18:21)
[2020-04-11] MEDS: GABAPENTIN 300 MG CAP PO SCH (20:00)
[2020-04-11] MEDS: HYDROcodone/ACETAMINOPHEN 7.5-325MG TAB PO SCH (22:00)
[2020-04-12] MEDS: PANTOPRAZOLE 80 MG in SODIUM CHLORIDE 0.9% 100 ML IV SCH ×2 (07:25→17:25)
[2020-04-12 08:03] LABS: BUN/Creatinine Ratio 35; Blood Urea Nitrogen 39 mg/dL (9-20); Calcium 9.2 mg/dL (8.4-10.2); Hemolysis Index 14
[2020-04-12 08:07] LABS: Basophils % (Auto) 0.3 % (0.0-1.8); Eosinophils % (Auto) 0.1 % (0.0-4.3); Hematocrit 24.3 % (35.5-45.6); Hemoglobin 7.4 gm/dl (11.8-15.2); Lymphocytes # (Auto) 0.8 K/mm3 (1.2-5.4); Lymphocytes % (Auto) 4.9 % (13.4-35.0); Mean Corpuscular HGB Conc 30 % (32-34); Mean Corpuscular Volume 71 fl (84-94); Monocytes # (Auto) 1.5 K/mm3 (0.0-0.8); Platelet Count 433 K/mm3 (140-440); Red Blood Count 3.41 M/mm3 (3.65-5.03); Red Cell Distribution Width 18.6 % (13.2-15.2)
[2020-04-12] MEDS: GABAPENTIN 300 MG CAP PO SCH ×3 (08:30→20:39)
[2020-04-12] MEDS: CARBIDOPA/LEVODOPA 25-100 MG TAB PO SCH ×2 (08:30→17:38)
[2020-04-12] MEDS: HYDROcodone/ACETAMINOPHEN 7.5-325MG TAB PO SCH ×2 (10:00→22:00)
--- NOTE | 2020-04-12 14:35 | Progress Note ---
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 If not tolerated by mouth Catapres patch (3) Parkinsonism Current Visit: Yes Status: Chronic Plan to address problem: Continue Sinemet (4) Hyperlipidemia Current Visit: Yes Status: Chronic Qualifiers: Hyperlipidemia type: mixed hyperlipidemia Qualified Code(s): E78.2 - Mixed hyperlipidemia Plan to address problem: Hold statins (5) Anemia Current Visit: Yes Status: Chronic Qualifiers: Anemia type: iron deficiency Iron deficiency anemia type: chronic blood loss Qualified Code(s): D50.0 - Iron deficiency anemia secondary to blood loss (chronic) Plan to address problem: Anemia work-up (6) DVT prophylaxis Current Visit: Yes Status: Acute Plan to address problem: On heparin and GI prophylaxis Subjective Date of service: 04/12/20 Principal diagnosis: Abdominal mass versus severe reflux Interval history: 69-year-old -[place] male with history of parkinsonism, GERD, hyperlipidemia, severe osteoarthritis brought in by for abdominal pain of 2 days duration and distention of the abdomen. Nausea present. Patient was confu sed and lethargic. No fever or chills. No shortness of breath. No exposure to coronavirus. In the emergency room, he had a CT scan which showed marked gastric distention consistent with gastric outlet obstruction and had an NG tube placed with over 2 L aspirated out. There was no blood in the aspirate. Since then, the patient has continued to pull out NG tube whenever they are placed, according to the nurse. Patient has a history of peptic ulcer disease and was hospitalized in December of this year. He underwent an upper endoscopy by Dr. Spicer on January 05 which showed a large irregular pyloric channel ulcer that was biopsied. He also had a pinpoint distal duodenal bulb stricture with surrounding ulcer that Dr. Spicer was unable to pass a balloon across for dilation purposes. He was seen by surgery during that admission. The recommendation was for outpatient follow-up on PPI with plans for possible tertiary center referral for definitive surgery. It is unclear if patient was taking a proton pump inhibitor at home as recommended either. Patient does not readily give a clear history, but it does not appear that outpatient follow-up was performed. There is apparently no history of nausea or vomiting. Patient has lost over 50 pounds in the last year. Objective - Constitutional Vitals: Vital Signs - 12hr 04/12/20 04/12/20 04/12/20 03:00 07:51 11:59 Temperature 98.6 F 98.4 F 98.9 F Pulse Rate 92 H 90 89 Respiratory 20 18 18 Rate Blood Pressure 118/78 141/75 135/68 O2 Sat by Pulse 99 100 Oximetry General appearance: Present: mild distress, well-nourished - EENT Eyes: PERRL, EOM intact ENT: hearing intact, clear oral mucosa Ears: bilateral: normal - Neck Neck: supple, normal ROM - Respiratory Respiratory effort: normal Respiratory: bilateral: CTA - Breasts Breasts: normal - Cardiovascular Heart rate: 78 Rhythm: regular Heart Sounds: Present: S1 & S2. Absent: gallop, rub Extremities: pulses intact, No edema, normal color, Full ROM - Gastrointestinal General gastrointestinal: Present: soft, non-tender, distended, hypoactive bowel sounds - Genitourinary Male genitourinary: normal - Integumentary Integumentary: clear, warm, dry - Musculoskeletal Musculoskeletal: 1, strength equal bilaterally - Neurologic Neurologic: moves all extremities - Psychiatric Psychiatric: memory intact, appropriate mood/affect, intact judgment & insight - Labs CBC & Chem 7: 04/14/20 05:37 04/14/20 05:37 Labs: Abnormal lab results 04/11/20 04/12/20 04/12/20 Range/Units 17:33 04:00 04:00 WBC 16.4 H (4.5-11.0) K/mm3 RBC 3.41 L (3.65-5.03) M/mm3 Hgb 7.4 L (11.8-15.2) gm/dl Hct 24.3 L (35.5-45.6) % MCV 71 L (84-94) fl MCH 22 L (28-32) pg MCHC 30 L (32-34) % RDW 18.6 H (13.2-15.2) % Lymph % (Auto) 4.9 L (13.4-35.0) % [place] % (Auto) 9.0 H (0.0-7.3) % Lymph # (Auto) 0.8 L (1.2-5.4) K/mm3 [place] # (Auto) 1.5 H (0.0-0.8) K/mm3 Seg Neutrophils % 85.7 H (40.0-70.0) % Seg Neutrophils # 14.1 H (1.8-7.7) K/mm3 BUN 39 H (9-20) mg/dL Glucose 112 H (75-100) mg/dL Crossmatch See Detail CT abdomen IMPRESSION: 1. Massive distention of the stomach for which etiology is not identified. Large amount of fluid is seen in the visualized distal esophagus consistent with reflux. 2. Moderate amount retained stool throughout the colon. Small fecal impaction noted within the rectum. 3. Abnormal appearance of the right hip with significant degenerative change and possible avascular necrosis. 4. Mild wedge compression fractures of T12 and L1 which appear chronic.
--- NOTE | 2020-04-12 15:10 | Consultation ---
History of Present Illness - Reason for Consult Consult date: 04/12/20 GOO Requesting physician: JULIAN MARIE - History of Present Illness Mr. Velazquez is a 69-year-old man who apparently came to the ER complaining that his stomach has gone from bad to worse. In the emergency room, he had a CT scan which showed marked gastric distention consistent with gastric outlet obstruction and had an NG tube placed with over 2 L aspirated out. There was no blood in the aspirate. Since then, the patient has continued to pull out NG tube whenever they are placed, according to the nurse. Patient has a history of peptic ulcer disease and was hospitalized in December of this year. He underwent an upper endoscopy by Dr. Spicer on January 05 which showed a large irregular pyloric channel ulcer that was biopsied. He also had a pinpoint distal duodenal bulb stricture with surrounding ulcer that Dr. Spicer was unable to pass a balloon across for dilation purposes. He was seen by corin burton during that admission. The recommendation was for outpatient follow-up on PPI with plans for possible tertiary center referral for definitive surgery. It is unclear if patient was taking a proton pump inhibitor at home as recommended either. Patient does not readily give a clear history, but it does not appear that outpatient follow-up was performed. There is apparently no history of nausea or vomiting. Patient has lost over 50 pounds in the last year. Patient's primary care physician is Dr. Bradley, and the patient had not followed up with him as an outpatient either. Meds reviewed. Past History Past Medical History: arthritis, GERD, hypertension, other (Parkinson's disease) Past Surgical History: cholecystectomy, Other (Bilateral rotator cuff surgery) Social history: , lives with family. denies: smoking, alcohol abuse, prescription drug abuse Family history: hypertension Medications and Allergies Allergies Allergy/AdvReac Type Severity Reaction Status Date / Time No Known Allergies Allergy Verified 03/15/20 13:57 Home Medications Medication Instructions Recorded Confirmed Last Taken Type Carbidopa/Levodopa 25-100 [Sinemet 1 tab PO TID 05/15/14 03/05/19 03/06/19 History ] Diclofenac 1% [Diclofenac 1% 1 applicatio TP QID PRN #1 tube 11/17/18 03/05/19 03/06/19 Rx topical gel] Carbidopa/Levodopa 25-100 [Sinemet 1 each PO TID #90 tablet 01/07/20 Unknown Rx 25/100] Gabapentin 300 mg PO TID #90 capsule 01/07/20 Unknown Rx HYDROcodone/APAP 7.5-325 [[place] 1 each PO BID #18 tablet 01/07/20 Unknown Rx 7.5-325 mg TAB] PARoxetine HCL [PARoxetine] 40 mg PO DAILY #30 01/07/20 Unknown Rx Active Meds: Active Medications Acetaminophen (Tylenol) 650 mg PO Q4H PRN PRN Reason: Pain MILD(1-3)/Fever >100.5/BUSTOS Hydrocodone Bitart/Acetaminophen ([place] 7.5/325) 1 each PO BID [facility] Last Admin: 04/11/20 22:00 Dose: Not Given Documented by: Carbidopa/Levodopa (Sinemet) 1 each PO TID [facility] Gabapentin (Gabapentin) 300 mg PO TID [facility] Last Admin: 04/11/20 20:00 Dose: Not Given Documented by: Pantoprazole Sodium 80 mg/ (Sodium Chloride) 100 mls @ 10 mls/hr IV DIRECT MAGALIS Sodium Chloride (Nacl 0.9% 1000 Ml) 1,000 mls @ 75 mls/hr IV DIRECT MAGALIS Ondansetron HCl (Zofran) 4 mg IV Q8H PRN PRN Reason: Nausea And Vomiting Paroxetine HCl (Paxil) 40 mg PO DAILY [place] Sodium Chloride (Sodium Chloride Flush Syringe 10 Ml) 10 ml IV BID [place]ALIS Sodium Chloride (Sodium Chloride Flush Syringe 10 Ml) 10 ml IV PRN PRN PRN Reason: LINE FLUSH Review of Systems ROS unobtainable: due to mental status Exam - Constitutional Vitals: Temp Pulse Resp BP Pulse Ox 98.9 F 89 18 135/68 100 04/12/20 11:59 04/12/20 11:59 04/12/20 11:59 04/12/20 11:59 04/12/20 15:04 General appearance: Present: no acute distress - EENT Eyes: Present: PERRL, EOM intact ENT: hearing intact - Respiratory Respiratory effort: normal Respiratory: bilateral: CTA - Cardiovascular Rhythm: regular Heart Sounds: Present: S1 & S2 - Extremities Extremities: No edema - Abdominal General gastrointestinal: Present: soft, non-tender Results - Labs CBC & Chem 7: 04/12/20 04:00 04/12/20 04:00 Labs: Abnormal lab results 04/11/20 04/12/20 04/12/20 Range/Units 17:33 04:00 04:00 WBC 16.4 H (4.5-11.0) K/mm3 RBC 3.41 L (3.65-5.03) M/mm3 Hgb 7.4 L (11.8-15.2) gm/dl Hct 24.3 L (35.5-45.6) % MCV 71 L (84-94) fl MCH 22 L (28-32) pg MCHC 30 L (32-34) % RDW 18.6 H (13.2-15.2) % Lymph % (Auto) 4.9 L (13.4-35.0) % [place] % (Auto) 9.0 H (0.0-7.3) % Lymph # (Auto) 0.8 L (1.2-5.4) K/mm3 [place] # (Auto) 1.5 H (0.0-0.8) K/mm3 Seg Neutrophils % 85.7 H (40.0-70.0) % Seg Neutrophils # 14.1 H (1.8-7.7) K/mm3 BUN 39 H (9-20) mg/dL Glucose 112 H (75-100) mg/dL Crossmatch See Detail - Imaging and Cardiology CT scan - abdomen: report reviewed (Massive gastric distention) Assessment and Plan 1. Gastric outlet obstruction -patient has peptic ulcer disease resulting in duodenal bulb stricturing and outlet obstruction. He also has a large irregular pyloric channel ulcer that was biopsied. Unfortunately he was not able to com ply with recommendations for follow-up as an outpatient. It is unclear as to whether or not he was taking his proton pump inhibitors as well. Currently, patient is refusing NG tube. -Options are for palliative surgery with gastrojejunostomy for bypass of obstruction, and this would certainly be appropriate if there was no malignancy, and also reasonable if there is a malignancy in case a palliative approach were to be pursued. -Dr. Bradley will address options with the patient's -NG tube if possible, given risk of vomiting and aspiration, though patient apparently did not have any vomiting prior to admission. -Proton pump inhibitors bid -Surgical consult 2. Microcytic anemia -patient had a hemoglobin of 8.9 in December and is now down to 7.4. His MCV was 104 and is now down to 71. I suspect this is due to chronic blood loss and iron deficiency. -We will check iron levels -Monitor H&H and transfuse as needed
[2020-04-12 16:22] LABS: Bilirubin,Urine NEG (Negative); Blood,Urine NEG (Negative); Color,Urine Yellow (Yellow); Mucus,Urine FEW /HPF; Protein,Urine <15 mg/dL mg/dL (Negative); RBC,Urine < 1.0 /HPF (0.0-6.0); Urobilinogen,Urine < 2.0 mg/dL (<2.0); WBC,Urine < 1.0 /HPF (0.0-6.0)
--- NOTE | 2020-04-12 16:26 | Consultation ---
History of Present Illness Consult date: 04/12/20 Reason for consult: abdominal pain Chief complaint: abdominal pain - History of present illness History of present illness: 69-year-old male with past medical history of peptic ulcer disease, Parkinson's who presented to the emergency room with complaints of abdominal pain and constipation. The patient is a poor historian. The patient cannot localize his pain and states that sometimes it is in the upper and left abdomen and sometimes is in the lower abdomen. The pain is been ongoing for some time. He states that he did have vomiting over the last 2 to 3 days. No fevers or chills, chest pain, shortness of breath. He states that he was tolerating boost shakes and other liquids up until this point. He states that he has had follow-up with a physician at [facility] and has undergone another endoscopy recently. Per notes, the patient has lost a significant amount of weight unintentionally over the last several months. Uncertain if he has been compliant with medical therapy for ulcer. The patient was recently admitted to [facility] on December 2019 for similar complaints. At that time he underwent endoscopy by Dr. Spicer and was found to have an irregular pyloric channel ulcer extending into the duodenal bulb which ended in a pinpoint opening, could not be passed with the scope. The pyloric channel ulcer was biopsied and pathology was negative for malignancy and H. pylori. Surgical consultation at that time was performed and it was recommended that the patient follow-up at a tertiary care center for further management, possible surgical evaluation. Additional history is obtained from the patient's over the telephone. She states that the patient has been suffering with peptic ulcer disease for many years. In 2012 he underwent endoscopy by Dr. Titus with balloon dilatation of the ulcer. She states that on March 05, 2020 the patient underwent endoscopy with balloon dilatation of the strictured area by Dr. Samantha Montes at [facility]. She states they had a follow-up appointment with Dr. Montes last month and the patient was supposed to have another endoscopy performed, however this has not been scheduled. Past History Past Medical History: arthritis, GERD, hypertension, other (Parkinson's disease, PUD) Past Surgical History: cholecystectomy, Other (Bilateral rotator cuff surgery, Endoscopy with balloon dilatation) Social history: , lives with family. denies: smoking, alcohol abuse, prescription drug abuse Family history: hypertension Medications and Allergies Allergies Allergy/AdvReac Type Severity Reaction Status Date / Time No Known Allergies Allergy Verified 03/15/20 13:57 Home Medications Medication Instructions Recorded Confirmed Last Taken Type Carbidopa/Levodopa 25-100 [Sinemet 1 tab PO TID 05/15/14 03/05/19 03/06/19 History ] Diclofenac 1% [Diclofenac 1% 1 applicatio TP QID PRN #1 tube 11/17/18 03/05/19 03/06/19 Rx topical gel] Carbidopa/Levodopa 25-100 [Sinemet 1 each PO TID #90 tablet 01/07/20 Unknown Rx ] Gabapentin 300 mg PO TID #90 capsule 01/07/20 Unknown Rx HYDROcodone/APAP 7.5-325 [[place] 1 each PO BID #18 tablet 01/07/20 Unknown Rx 7.5-325 mg TAB] PARoxetine HCL [PARoxetine] 40 mg PO DAILY #30 01/07/20 Unknown Rx Active Meds: Active Medications Acetaminophen (Tylenol) 650 mg PO Q4H PRN PRN Reason: Pain MILD(1-3)/Fever >100.5/BUSTOS Hydrocodone Bitart/Acetaminophen ([place] 7.5/325) 1 each PO BID [facility] Last Admin: 04/11/20 22:00 Dose: Not Given Documented by: Bisacodyl (Dulcolax) 10 mg DC QDAY [facility] Carbidopa/Levodopa (Sinemet) 1 each PO TID [facility] Gabapentin (Gabapentin) 300 mg PO TID [facility] Last Admin: 04/11/20 20:00 Dose: Not Given Documented by: Pantoprazole Sodium 80 mg/ (Sodium Chloride) 100 mls @ 10 mls/hr IV DIRECT [facility] Sodium Chloride (Nacl 0.9% 1000 Ml) 1,000 mls @ 75 mls/hr IV DIRECT [facility] Lidocaine HCl (Lidocaine Viscous 2%) 15 ml MM ONCE ONE Stop: 04/12/20 17:01 Ondansetron HCl (Zofran) 4 mg IV Q8H PRN PRN Reason: Nausea And Vomiting Paroxetine HCl (Paxil) 40 mg PO DAILY [facility] Sodium Chloride (Sodium Chloride Flush Syringe 10 Ml) 10 ml IV BID [facility] Sodium Chloride (Sodium Chloride Flush Syringe 10 Ml) 10 ml IV PRN PRN PRN Reason: LINE FLUSH Review of Systems All systems: negative (10 point ROS performed and negative except for that listed in HPI) Exam Vital Signs Temp Pulse Resp BP Pulse Ox 98.1 F 117 H 20 109/76 100 04/11/20 10:16 04/11/20 10:16 04/11/20 10:16 04/11/20 10:16 04/11/20 10:16 Narrative exam: Gen.: Awake, alert, oriented 2. No apparent distress ENT: Trachea midline. + Conjunctival pallor. No lymphadenopathy. No scleral icterus. Poor dentition. CV: S1, S2 present Respiratory: No audible wheezes Abdomen: Soft, nondistended, nontender. Loose abdominal skin. No rebound, rigidity, guarding Extremities: No clubbing, cyanosis, edema Results - Labs 04/12/20 04:00 04/12/20 04:00 Abnormal lab results 04/11/20 04/12/20 04/12/20 Range/Units 17:33 04:00 04:00 WBC 16.4 H (4.5-11.0) K/mm3 RBC 3.41 L (3.65-5.03) M/mm3 Hgb 7.4 L (11.8-15.2) gm/dl Hct 24.3 L (35.5-45.6) % MCV 71 L (84-94) fl MCH 22 L (28-32) pg MCHC 30 L (32-34) % RDW 18.6 H (13.2-15.2) % Lymph % (Auto) 4.9 L (13.4-35.0) % [place] % (Auto) 9.0 H (0.0-7.3) % Lymph # (Auto) 0.8 L (1.2-5.4) K/mm3 [place] # (Auto) 1.5 H (0.0-0.8) K/mm3 Seg Neutrophils % 85.7 H (40.0-70.0) % Seg Neutrophils # 14.1 H (1.8-7.7) K/mm3 BUN 39 H (9-20) mg/dL Glucose 112 H (75-100) mg/dL Crossmatch See Detail Diabetes panel 04/12/20 Range/Units 04:00 Sodium 139 (137-145) mmol/L Potassium 5.0 D (3.6-5.0) mmol/L Chloride 104.4 (98-107) mmol/L Carbon Dioxide 22 (22-30) mmol/L BUN 39 H (9-20) mg/dL Creatinine 1.1 (0.8-1.3) mg/dL Glucose 112 H (75-100) mg/dL Calcium 9.2 (8.4-10.2) mg/dL Calcium panel 04/12/20 Range/Units 04:00 Calcium 9.2 (8.4-10.2) mg/dL Pituitary panel 04/12/20 Range/Units 04:00 Sodium 139 (137-145) mmol/L Potassium 5.0 D (3.6-5.0) mmol/L Chloride 104.4 (98-107) mmol/L Carbon Dioxide 22 (22-30) mmol/L BUN 39 H (9-20) mg/dL Creatinine 1.1 (0.8-1.3) mg/dL Glucose 112 H (75-100) mg/dL Calcium 9.2 (8.4-10.2) mg/dL Adrenal panel 04/12/20 Range/Units 04:00 Sodium 139 (137-145) mmol/L Potassium 5.0 D (3.6-5.0) mmol/L Chloride 104.4 (98-107) mmol/L Carbon Dioxide 22 (22-30) mmol/L BUN 39 H (9-20) mg/dL Creatinine 1.1 (0.8-1.3) mg/dL Glucose 112 H (75-100) mg/dL Calcium 9.2 (8.4-10.2) mg/dL - Imaging CT scan - abdomen: report reviewed, image reviewed CT scan - pelvis: report reviewed, image reviewed Assessment and Plan 69 yo M with 1. 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 chronic anemia 2/2 duodenal ulcer 3. constipation Plan: 1. NPO 2. IVF 3. NGT to LIWS - patient agreeable to have it reinserted by RN. Viscous lidocaine ordered 4. monitor H/H - transfuse as needed 5. DVT ppx 6. bowel regimen - enema x1 and dulcolax DC daily 7. GI recs reviewed and appreciated The patient is currently under the care of gastroenterology at [facility] for treatment of large ulcer with GOO. Recommend contacting patient's sap technical architect Dr. Montes to determine if transfer would be appropriate. Gastrojejunal anastamosis to bypass the ulcer would only be palliative and will not address ulcer. Discussed options with patient's . All questions were answered. At this time, she is not amenable to palliative treatment for the ulcer. Thank you for this consultation. Please call with any questions or concerns. Evaluation and treatment of this patient was during the time of the national and state emergency arising from COVID19 coronavirus pandemic. Treatment and procedures performed meet the current and available best practice and guidelines for patient during the COVID pandemic.
[2020-04-12] MEDS ORDERED: LIDOCAINE VISCOUS 2% 15 ML ORAL LIQD MM ONE (17:00)
[2020-04-12] MEDS: PARoxetine 20 MG TAB PO SCH (17:38)
--- NOTE | 2020-04-12 22:02 | Event Note ---
Date: 04/12/20 I was able to access Dr. Montes's records from [facility] as well as his 03/19/20 office note. Pt underwent EGD x 2 in 02/2020, the last being on 03/05, at which time antral ulcer was noted. Pt had duodenal stricture dilated to 12 mm. Biopsies showed no malignancy. Pt was on omeprazole and Carafate. On 03/19/20, Dr. Montes saw pt in office and planned another EGD/dilation, and if that failed, was going to suggest possible jejunostomy tube. I believe that EGD with dilation will be unlikely to have a durable result, and a gastrojejunostomy may well be best for obstruction. Repeat EGD to assess ulcer can be done, and if it is present, an alternative would be to do PUD surgery with selective vagotomy and possible antrectomy, vs with a gastrojejunostomy. Will discuss with pt's tomorrow, and with Dr. Bradley, PCP, as well as Dr. York, Surgery.
[2020-04-13] MEDS: CARBIDOPA/LEVODOPA 25-100 MG TAB PO SCH ×5 (00:24→22:35)
[2020-04-13] MEDS: PANTOPRAZOLE 80 MG in SODIUM CHLORIDE 0.9% 100 ML IV SCH ×2 (04:05→14:45)
[2020-04-13 07:16] LABS: Basophils % (Auto) 0.4 % (0.0-1.8); Eosinophils % (Auto) 0.5 % (0.0-4.3); Mean Corpuscular HGB Conc 31 % (32-34); Mean Corpuscular Volume 71 fl (84-94); Monocytes # (Auto) 0.9 K/mm3 (0.0-0.8); Monocytes % (Auto) 10.1 % (0.0-7.3); Platelet Count 365 K/mm3 (140-440); Red Blood Count 2.67 M/mm3 (3.65-5.03); Red Cell Distribution Width 18.1 % (13.2-15.2)
[2020-04-13 07:24] LABS: Hematocrit 19.1 % (35.5-45.6); Hemoglobin 5.9 gm/dl (11.8-15.2)
[2020-04-13 07:55] LABS: BUN/Creatinine Ratio 30; Blood Urea Nitrogen 24 mg/dL (9-20); Calcium 8.1 mg/dL (8.4-10.2); Hemolysis Index 3; Iron 14 ug/dL (49-181); Total Iron Binding Capacity 287 mcg/dL (250-450)
[2020-04-13 07:59] LABS: Alanine Aminotransferase < 5 units/L (7-56)
[2020-04-13] MEDS: GABAPENTIN 300 MG CAP PO SCH ×3 (08:47→22:35)
--- NOTE | 2020-04-13 10:54 | Progress Note ---
Assessment and Plan 1. Gastric outlet obstruction -patient has peptic ulcer disease resulting in duodenal bulb stricturing and outlet obstruction. He also has a large irregular pyloric channel ulcer that was biopsied, and negative for malignancy. He has been dilated to 12 mm on 03/05/20. states he is on daily omeprazole. - will do EGD with repeat dilation if appropriate -Options, if ulcer still present, are for palliative surgery with gastrojejunos ronal for bypass of obstruction, vs PUD surgery with antrectomy/vagotomy, etc. -discussed with Drs. Bradley, Chela, and with pt's - after EGD, if appropriate, will refer for possible PUD surgery to Dr. Hanna at [place] 2. Microcytic anemia -patient had a hemoglobin of 8.9 in December and is now down t o 5.9 today. No evidence of active bleeding. -Follow up on iron levels -Monitor H&H and transfuse as needed Subjective Date of service: 04/13/20 Principal diagnosis: Abdominal mass versus severe reflux Interval history: Pt denies complaints. No abd pain, N/V, caleb GI bleed. Objective - Constitutional Vitals: Vital Signs - 12hr 04/13/20 04/13/20 04/13/20 00:48 04:20 07:10 Temperature 98.4 F 98.7 F 98.3 F Pulse Rate 75 72 74 Respiratory 20 18 18 Rate Blood Pressure 121/65 102/53 121/64 O2 Sat by Pulse 99 98 99 Oximetry General appearance: Present: no acute distress - EENT Eyes: PERRL, EOM intact ENT: hearing intact - Respiratory Respiratory effort: normal - Cardiovascular Rhythm: regular Heart Sounds: Present: S1 & S2 - Gastrointestinal General gastrointestinal: Present: soft, non-tender Rectal Exam: other (No stool or masses, no blood) - Labs CBC & Chem 7: 04/13/20 06:32 04/13/20 06:32 Labs: Abnormal lab results 04/13/20 04/13/20 04/13/20 Range/Units 06:32 06:32 06:32 RBC 2.67 L (3.65-5.03) M/mm3 Hgb 5.9 L* (11.8-15.2) gm/dl Hct 19.1 L* (35.5-45.6) % MCV 71 L (84-94) fl MCH 22 L (28-32) pg MCHC 31 L (32-34) % RDW 18.1 H (13.2-15.2) % Lymph % (Auto) 12.0 L (13.4-35.0) % [place] % (Auto) 10.1 H (0.0-7.3) % Lymph # (Auto) 1.0 L (1.2-5.4) K/mm3 [place] # (Auto) 0.9 H (0.0-0.8) K/mm3 Seg Neutrophils % 77.0 H (40.0-70.0) % Chloride 107.5 H (98-107) mmol/L BUN 24 H (9-20) mg/dL Calcium 8.1 L (8.4-10.2) mg/dL Iron 14 L (49-181) ug/dL Ferritin 13.3 L (30.0-300.0) ng/mL ALT < 5 L (7-56) units/L Total Protein 5.5 L D (6.3-8.2) g/dL Albumin 3.0 L (3.9-5) g/dL Medications & Allergies - Medications Allergies/Adverse Reactions: Allergies No Known Allergies Allergy (Verified 03/15/20 13:57) Home Medications: Home Medications Medication Instructions Recorded Confirmed Last Taken Type Carbidopa/Levodopa 25-100 [Sinemet 1 tab PO TID 05/15/14 03/05/19 03/06/19 History 25] Diclofenac 1% [Diclofenac 1% 1 applicatio TP QID PRN #1 tube 11/17/18 03/05/19 03/06/19 Rx topical gel] Carbidopa/Levodopa 25-100 [Sinemet 1 each PO TID #90 tablet 01/07/20 Unknown Rx 25/100] Gabapentin 300 mg PO TID #90 capsule 01/07/20 Unknown Rx HYDROcodone/APAP 7.5-325 [[place] 1 each PO BID #18 tablet 01/07/20 Unknown Rx 7.5-325 mg TAB] PARoxetine HCL [PARoxetine] 40 mg PO DAILY #30 01/07/20 Unknown Rx Active Medications: Generic Name Dose Route Start Last Admin Trade Name Freq PRN Reason Stop Dose Admin Acetaminophen 650 mg 04/11/20 17:06 Tylenol PO Q4H PRN Pain MILD(1-3)/Fever >100.5/BUSTOS Hydrocodone Bitart/Acetaminophen 1 each 04/11/20 22:00 04/12/20 22:00 [place] 7.5/325 PO Not Given BID MAG[facility]IS Bisacodyl 10 mg 04/12/20 17:00 04/12/20 17:38 Dulcolax [place] 10 mg QDAY [facility] Administration Carbidopa/Levodopa 1 each 04/11/20 20:00 04/13/20 00:25 Sinemet PO 1 each TID [facility] Administration Gabapentin 300 mg 04/11/20 20:00 04/12/20 20:39 Gabapentin PO 300 mg TID [facility] Administration Pantoprazole Sodium 80 mg/ 100 mls @ 10 mls/hr 04/11/20 18:00 04/13/20 04:05 Sodium Chloride IV 8 mg/hr DIRECT [facility] 10 mls/hr Administration 8 MG/HR Sodium Chloride 1,000 mls @ 75 mls/hr 04/11/20 17:15 04/12/20 17:36 Nacl 0.9% 1000 Ml IV 75 mls/hr DIRECT [facility] Administration Ondansetron HCl 4 mg 04/11/20 17:06 Zofran IV Q8H PRN Nausea And Vomiting Paroxetine HCl 40 mg 04/12/20 10:00 04/12/20 17:38 Paxil PO 40 mg DAILY [facility] Administration Sodium Chloride 10 ml 04/11/20 22:00 04/12/20 22:16 Sodium Chloride Flush Syringe 10 Ml IV Not Given BID [facility] Sodium Chloride 10 ml 04/11/20 17:06 Sodium Chloride Flush Syringe 10 Ml IV PRN PRN LINE FLUSH
[2020-04-13] MEDS: PARoxetine 20 MG TAB PO SCH (11:46)
[2020-04-13] MEDS: HYDROcodone/ACETAMINOPHEN 7.5-325MG TAB PO SCH ×2 (11:46→22:35)
--- NOTE | 2020-04-13 12:38 | Progress Note ---
Assessment and Plan 69 yo M with 1. GOO 2/2 chronic ulcer and duodenal stricture 2. chronic anemia 2/2 PUD 3. constipation Plan: 1. NPO 2. IVF 3. NGT unable to be placed. Pt without n/v - will hold off on reattempting. 4. monitor H/H - trending down, PRBC transfusion ordered per 1' team 5. DVT ppx 6. bowel regimen - dulcolax [place] daily 7. PPI BID 8. Case discussed with Dr. Piña - notes reviewed and recs appreciated. Patient for EGD in am 9. PUD surgery most appropriate for patient as this will address ulcer/chronic bleeding. For this surgery, patient will need to follow up at tertiary care center. Possible outpatient referral vs transfer to [place] pending EGD results. Thank you for this consultation. Please call with any questions or concerns. Evaluation and treatment of this patient was during the time of the national and state emergency arising from COVID19 coronavirus pandemic. Treatment and procedures performed meet the current and available best practice and guidelines for patient during the COVID pandemic. . Subjective Date of service: 04/13/20 Narrative: Pt seen and examined. No acute complaints. No abdominal pain, n/v. No lightheadedness/dizziness. Had small BM yesterday, no melena/hematochezia documented. Objective Vital Signs - 12hr 04/13/20 04/13/20 04/13/20 00:48 04:20 07:10 Temperature 98.4 F 98.7 F 98.3 F Pulse Rate 75 72 74 Respiratory 20 18 18 Rate Blood Pressure 121/65 102/53 121/64 O2 Sat by Pulse 99 98 99 Oximetry 04/13/20 10:52 Temperature 98.3 F Pulse Rate 68 Respiratory 20 Rate Blood Pressure 111/54 O2 Sat by Pulse 99 Oximetry - General physical appearance Narrative Exam: Gen: AAOx3. NAD CV: s1, S2+ Resp; even and unlabored Abd: soft, NT, ND Ext: no c/c/e - Labs 04/13/20 06:32 04/13/20 06:32 Diabetes panel 04/13/20 Range/Units 06:32 Sodium 140 (137-145) mmol/L Potassium 3.8 D (3.6-5.0) mmol/L Chloride 107.5 H (98-107) mmol/L Carbon Dioxide 25 (22-30) mmol/L BUN 24 H (9-20) mg/dL Creatinine 0.8 (0.8-1.3) mg/dL Glucose 86 (75-100) mg/dL Calcium 8.1 L (8.4-10.2) mg/dL AST 20 (5-40) units/L ALT < 5 L (7-56) units/L Alkaline Phosphatase 48 (35-129) units/L Total Protein 5.5 L D (6.3-8.2) g/dL Albumin 3.0 L (3.9-5) g/dL Calcium panel 04/13/20 Range/Units 06:32 Calcium 8.1 L (8.4-10.2) mg/dL Albumin 3.0 L (3.9-5) g/dL Pituitary panel 04/13/20 Range/Units 06:32 Sodium 140 (137-145) mmol/L Potassium 3.8 D (3.6-5.0) mmol/L Chloride 107.5 H (98-107) mmol/L Carbon Dioxide 25 (22-30) mmol/L BUN 24 H (9-20) mg/dL Creatinine 0.8 (0.8-1.3) mg/dL Glucose 86 (75-100) mg/dL Calcium 8.1 L (8.4-10.2) mg/dL Adrenal panel 04/13/20 Range/Units 06:32 Sodium 140 (137-145) mmol/L Potassium 3.8 D (3.6-5.0) mmol/L Chloride 107.5 H (98-107) mmol/L Carbon Dioxide 25 (22-30) mmol/L BUN 24 H (9-20) mg/dL Creatinine 0.8 (0.8-1.3) mg/dL Glucose 86 (75-100) mg/dL Calcium 8.1 L (8.4-10.2) mg/dL Total Bilirubin 0.40 (0.1-1.2) mg/dL AST 20 (5-40) units/L ALT < 5 L (7-56) units/L Alkaline Phosphatase 48 (35-129) units/L Total Protein 5.5 L D (6.3-8.2) g/dL Albumin 3.0 L (3.9-5) g/dL
[2020-04-13] MEDS ORDERED: SODIUM CHLORIDE 0.9% 500 ML 500 ML IV SCH (13:00)
--- NOTE | 2020-04-13 15:52 | Progress Note ---
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 If not tolerated by mouth Catapres patch (3) Parkinsonism Current Visit: Yes Status: Chronic Plan to address problem: Continue Sinemet (4) Hyperlipidemia Current Visit: Yes Status: Chronic Qualifiers: Hyperlipidemia type: mixed hyperlipidemia Qualified Code(s): E78.2 - Mixed hyperlipidemia Plan to address problem: Hold statins (5) Anemia Current Visit: Yes Status: Chronic Qualifiers: Anemia type: iron deficiency Iron deficiency anemia type: chronic blood loss Qualified Code(s): D50.0 - Iron deficiency anemia secondary to blood loss (chronic) Plan to address problem: Anemia work-up (6) DVT prophylaxis Current Visit: Yes Status: Acute Plan to address problem: On heparin and GI prophylaxis Subjective Date of service: 04/13/20 Principal diagnosis: Abdominal mass versus severe reflux Interval history: 69-year-old -[place] male with history of parkinsonism, GERD, hyperlipidemia, severe osteoarthritis brought in by for abdominal pain of 2 days duration and distention of the abdomen. Nausea present. Patient was confu sed and lethargic. No fever or chills. No shortness of breath. No exposure to coronavirus. In the emergency room, he had a CT scan which showed marked gastric distention consistent with gastric outlet obstruction and had an NG tube placed with over 2 L aspirated out. There was no blood in the aspirate. Since then, the patient has continued to pull out NG tube whenever they are placed, according to the nurse. Patient has a history of peptic ulcer disease and was hospitalized in December. He underwent an upper endoscopy by Dr. Spicer on January 05 which showed a large irregular pyloric channel ulcer that was biopsied. He also had a pinpoint distal duodenal bulb stricture with surrounding ulcer that Dr. Spicer was unable to pass a balloon across for dilation purposes. He was seen by surgery during that admission. The recommendation was for outpatient follow-up on PPI with pl ans for possible tertiary center referral for definitive surgery. It is unclear if patient was taking a proton pump inhibitor at home as recommended either. Patient does not readily give a clear history, but it does not appear that outpatient follow-up was performed. There is apparently no history of nausea or vomiting. Patient has lost over 50 pounds in the last year. Objective - Constitutional Vitals: Vital Signs - 12hr 04/13/20 04/13/20 04/13/20 04:20 07:10 10:52 Temperature 98.7 F 98.3 F 98.3 F Pulse Rate 72 74 68 Respiratory 18 18 20 Rate Blood Pressure 102/53 121/64 111/54 O2 Sat by Pulse 98 99 99 Oximetry General appearance: Present: no acute distress, well-nourished - EENT Eyes: PERRL, EOM intact ENT: hearing intact, clear oral mucosa Ears: bilateral: normal - Neck Neck: supple, normal ROM - Respiratory Respiratory effort: normal Respiratory: bilateral: CTA - Breasts Breasts: normal - Cardiovascular Rhythm: regular Heart Sounds: Present: S1 & S2. Absent: gallop, rub Extremities: pulses intact, No edema, normal color, Full ROM - Gastrointestinal General gastrointestinal: Present: soft, non-tender, non-distended, normal bowel sounds - Genitourinary Male genitourinary: normal - Integumentary Integumentary: clear, warm, dry - Musculoskeletal Musculoskeletal: 1, strength equal bilaterally - Neurologic Neurologic: moves all extremities - Psychiatric Psychiatric: memory intact, appropriate mood/affect, intact judgment & insight - Labs CBC & Chem 7: 04/14/20 05:37 04/14/20 05:37 Labs: Abnormal lab results 04/11/20 04/13/20 04/13/20 Range/Units 17:33 06:32 06:32 RBC 2.67 L (3.65-5.03) M/mm3 Hgb 5.9 L* (11.8-15.2) gm/dl Hct 19.1 L* (35.5-45.6) % MCV 71 L (84-94) fl MCH 22 L (28-32) pg MCHC 31 L (32-34) % RDW 18.1 H (13.2-15.2) % Lymph % (Auto) 12.0 L (13.4-35.0) % [place] % (Auto) 10.1 H (0.0-7.3) % Lymph # (Auto) 1.0 L (1.2-5.4) K/mm3 [place] # (Auto) 0.9 H (0.0-0.8) K/mm3 Seg Neutrophils % 77.0 H (40.0-70.0) % Chloride 107.5 H (98-107) mmol/L BUN 24 H (9-20) mg/dL Calcium 8.1 L (8.4-10.2) mg/dL Iron 14 L (49-181) ug/dL Ferritin (30.0-300.0) ng/mL ALT < 5 L (7-56) units/L Total Protein 5.5 L D (6.3-8.2) g/dL Albumin 3.0 L (3.9-5) g/dL Crossmatch See Detail 04/13/20 Range/Units 06:32 RBC (3.65-5.03) M/mm3 Hgb (11.8-15.2) gm/dl Hct (35.5-45.6) % MCV (84-94) fl MCH (28-32) pg MCHC (32-34) % RDW (13.2-15.2) % Lymph % (Auto) (13.4-35.0) % [place] % (Auto) (0.0-7.3) % Lymph # (Auto) (1.2-5.4) K/mm3 [place] # (Auto) (0.0-0.8) K/mm3 Seg Neutrophils % (40.0-70.0) % Chloride (98-107) mmol/L BUN (9-20) mg/dL Calcium (8.4-10.2) mg/dL Iron (49-181) ug/dL Ferritin 13.3 L (30.0-300.0) ng/mL ALT (7-56) units/L Total Protein (6.3-8.2) g/dL Albumin (3.9-5) g/dL Crossmatch
[2020-04-14 00:02] LABS: Hematocrit 22.1 % (35.5-45.6); Mean Corpuscular HGB Conc 32 % (32-34); Mean Corpuscular Volume 72 fl (84-94); Platelet Count 364 K/mm3 (140-440); Red Blood Count 3.08 M/mm3 (3.65-5.03); Red Cell Distribution Width 19.3 % (13.2-15.2)
[2020-04-14] MEDS: PANTOPRAZOLE 80 MG in SODIUM CHLORIDE 0.9% 100 ML IV SCH (04:04)
[2020-04-14 06:04] LABS: Basophils % (Auto) 0.7 % (0.0-1.8); Eosinophils # (Auto) 0.2 K/mm3 (0.0-0.4); Eosinophils % (Auto) 3.1 % (0.0-4.3); Hematocrit 22.1 % (35.5-45.6); Lymphocytes # (Auto) 1.1 K/mm3 (1.2-5.4); Lymphocytes % (Auto) 17.7 % (13.4-35.0); Mean Corpuscular HGB Conc 31 % (32-34); Mean Corpuscular Volume 73 fl (84-94); Monocytes # (Auto) 0.6 K/mm3 (0.0-0.8); Monocytes % (Auto) 10.3 % (0.0-7.3); Platelet Count 352 K/mm3 (140-440); Red Blood Count 3.02 M/mm3 (3.65-5.03)
[2020-04-14 06:38] LABS: Alanine Aminotransferase 6 units/L (7-56); Albumin 2.9 g/dL (3.9-5); Blood Urea Nitrogen 16 mg/dL (9-20); Hemolysis Index 28
[2020-04-14 06:42] LABS: BUN/Creatinine Ratio 27
[2020-04-14] MEDS ORDERED: SODIUM CHLORIDE 0.9% 1000 ML 1,000 ML IV SCH ×2 (07:30→11:15)
[2020-04-14] MEDS ORDERED: SODIUM CHLORIDE 0.9% 1000 ML 1,000 ML ONE ×2 (09:54→13:07)
[2020-04-14] MEDS: HYDROcodone/ACETAMINOPHEN 7.5-325MG TAB PO SCH (10:00)
--- NOTE | 2020-04-14 10:09 | Anesthesia Consultation ---
Anesthesia Consult and Med Hx Date of service: 04/14/20 - Airway Anesthetic Teeth Evaluation: Edentulous ROM Head & Neck: Adequate Mental/Hyoid Distance: Adequate Mallampati Class: Class II Intubation Access Assessment: Probably Good - Pre-Operative Health Status ASA Pre-Surgery Classification: ASA3 Proposed Anesthetic Plan: MAC - Pulmonary Hx Smoking: No Hx Asthma: No Hx Respiratory Symptoms: No SOB: No COPD: No Home Oxygen Therapy: No Hx Pneumonia: No Hx Sleep Apnea: No (STEFANI PRE SCREEN LOW RISK) - Cardiovascular System Hx Hypertension: No Hx Coronary Artery Disease: No Hx Heart Attack/AMI: No Hx Angina: No Hx Percutaneous Transluminal Coronary Angioplasty (PTCA): No Hx Cardia Arrhythmia: No Hx Pacemaker: No Hx Internal Defibrillator: No Hx Valvular Heart Disease: No Hx Heart Murmur: No Hx Peripheral Vascular Disease: No - Central Nervous System Hx Neuromuscular Disorder: Yes (Parkinson's Disease) Hx Seizures: No CVA: No Hx Back Pain: Yes Hx Psychiatric Problems: No - Gastrointestinal Hx Ulcer: Yes Hx Gastroesophageal Reflux Disease: Yes - Endocrine Hx Renal Disease: No Hx End Stage Renal Disease: No Hx Cirrhosis: No Hx Liver Disease: No Hx Insulin Dependent Diabetes: No Hx Non-Insulin Dependent Diabetes: No Hx Thyroid Disease: No Hx Hypothyroidism: No Hx Hyperthyroidism: No - Hematic Hx Anemia: Yes Hx Sickle Cell Disease: No - Other Systems Hx Alcohol Use: Yes (Occasionally) Hx Substance Use: No Hx Cancer: No Hx Obesity: No
--- NOTE | 2020-04-14 10:10 | Anesthesia Day of Surgery ---
Anesthesia Day of Surgery - Day of Surgery Patient Examined: Yes Patient H&P Reviewed: Yes Patient is NPO: Yes
[2020-04-14] MEDS ORDERED: LIDOCAINE MPF (2%) 20 MG/1 ML VIAL 5 ML ONE (11:39)
[2020-04-14] MEDS ORDERED: propofoL 200 MG/20 ML VIAL IV ONE (11:39)
[2020-04-14] MEDS: GABAPENTIN 300 MG CAP PO SCH ×2 (11:51→14:20)
[2020-04-14] MEDS: CARBIDOPA/LEVODOPA 25-100 MG TAB PO SCH ×2 (11:51→14:22)
[2020-04-14] MEDS: PARoxetine 20 MG TAB PO SCH (11:52)
--- NOTE | 2020-04-14 12:11 | Post Operative Note ---
Pre-op diagnosis: Gastric outlet obstruction, antral ulcer Post-op diagnosis: other (Pyloric stricture, apical duodenal bulb stricture, a ntral ulcer, retained food in stomach.) Findings: 1. ~ 3 cm, shallow, white-based antral ulcer. 2. Retained food in stomach. 3. Pyloric stricture, dilated to 15 mm. 4. Apical duodenal bulb stricture - dilated to 15 mm. 5. O/w normal EGD. Procedure: EGD with pyloric and duodenal balloon dilation Anesthesia: MAC Surgeon: ALEJANDRA JENSEN Estimated blood loss: minimal Pathology: none Condition: stable Disposition: floor (1. Adv diet. 2. May D/C to home on bid PPI and daily iron 3. Outpatient f/u in 1 month, to decide re: repeat EGD +/- dilation, vs referral to surgery.)
--- NOTE | 2020-04-14 12:36 | Operative Report ---
PROCEDURE: Upper endoscopy with balloon dilation. PREOPERATIVE DIAGNOSES: Gastric outlet obstruction and antral ulcer. POSTOPERATIVE DIAGNOSES: Antral ulcer, pyloric stricture, apical duodenal bulb stricture, and retained food in the stomach. SEDATION: MAC by Anesthesia. HISTORY: The patient is a 69-year-old man with a known history of significant peptic ulcer disease and gastric outlet obstruction, who was last dilated on 03/05/2020 to 12 mm. He came in again to the hospital with gastric outlet obstruction noted on CT scan. He is on a daily PPI at home according to his . DESCRIPTION OF PROCEDURE: Indications, risks, and benefits were explained and consent was obtained from the patient as well as from his . The patient was placed in left lateral decubitus position and sedated. Video endoscope was passed through the mouth and oropharynx into the antrum where further progress was precluded by pyloric stricture or stenosis. This was balloon dilated using a wire-guided balloon from 12-15 mm. Scope was then advanced into the duodenal bulb where another stricture was encountered at the apex of the bulb. This was also balloon dilated from 12-15 mm. Scope was then advanced into the descending duodenum and then gradually withdrawn with close inspection of mucosa. FINDINGS: 1. Esophagus has erosions scattered to the midpoint consistent with reflux esophagitis, likely related to gastric stasis. 2. Moderate amount of retained solid food noted in the gastric body along the greater curvature. 3. Approximately 3 cm irregular shaped shallow white based ulcer noted in the gastric antrum with no stigmata of bleeding, and no involvement of the pylorus. 4. Pyloric stricture, benign appearing mucosa. Balloon dilated to 15 mm with appropriate mucosal tearing with visualization of circular fibers. 5. Normal appearing duodenal bulb. Apical bulbar stricture noted that was benign-appearing with normal mucosa. This was balloon dilated to 15 mm as well with appropriate mucosal tearing and self-limited bleeding. 6. Remainder of duodenum is normal appearing. The patient tolerated the procedure well without immediate complications. IMPRESSION: 1. Esophagitis due to reflux from gastric stasis. 2. Retained food in stomach. 3. Shallow antral ulcer. 4. Pyloric stricture/stenosis -- dilated to 15 mm. 5. Atypical bulbar stricture of the duodenum dilated from 12-15 mm. 6. Normal duodenum. RECOMMENDATIONS: 1. Proton pump inhibitors twice a day. 2. Follow up as an outpatient in the office and repeat endoscopy in approximately 1 month to assess for ulcer healing as well as restricturing and possible redilation to 18 mm if appropriate. 3. If ulcer does not heal, or stricturing is rapid, surgical evaluation for either antiulcer surgery or gastrojejunostomy for bypass of stricturing. 4. Oral iron supplementation and monitor H and H to see if it comes up from 7. JOB# [id number] HRC/NTS
--- NOTE | 2020-04-14 13:12 | Progress Note ---
Assessment and Plan 69 yo M with 1. GOO 2/2 chronic ulcer and duodenal stricture 2. chronic anemia 2/2 PUD 3. constipation EGD 04/14/20: 3 cm, shallow, white-based antral ulcer. Pyloric stricture, dilated to 15 mm. Apical duodenal bulb stricture - dilated to 15 mm. Plan: 1. adv diet as tolerated 2. dc IVF once tolerating diet 3. monitor H/H - transfuse as needed. Responded well to 2 Units PRBC yesterday. 4. DVT ppx 5. bowel regimen - dulcolax [place] daily. Add colace PO BID and miralax prn daily 6. continue PPI BID 7. Per GI notes, patient to follow up as outpatient in 1 month for further management. Recs appreciated No surgical intervention at this time. Will s/o Thank you for this consultation. Please call with any questions or concerns. Evaluation and treatment of this patient was during the time of the national and state emergency arising from COVID19 coronavirus pandemic. Treatment and procedures performed meet the current and available best practice and guidelines for patient during the COVID pandemic. Subjective Date of service: 04/14/20 Narrative: Pt seen and examined. No complaints. No n/v. No f/c. s/p EGD today. Objective Vital Signs - 12hr 04/14/20 04/14/20 04/14/20 04:50 06:53 07:30 Temperature 98.5 F 98.5 F 98.5 F Pulse Rate 60 61 Respiratory 18 18 20 Rate Blood Pressure 111/58 93/45 Blood Pressure 93/45 [Left] O2 Sat by Pulse 99 99 Oximetry 04/14/20 04/14/20 04/14/20 10:00 10:50 12:15 Temperature 98.4 F 98.4 F 98.8 F Pulse Rate 55 L 55 L 73 Respiratory 16 16 14 Rate Blood Pressure 127/57 127/57 119/59 Blood Pressure [Left] O2 Sat by Pulse 99 99 100 Oximetry 04/14/20 04/14/20 04/14/20 12:20 12:25 12:30 Temperature Pulse Rate 74 70 66 Respiratory 15 13 14 Rate Blood Pressure 113/52 113/56 122/57 Blood Pressure [Left] O2 Sat by Pulse 100 100 99 Oximetry 04/14/20 04/14/20 04/14/20 12:45 12:57 13:05 Temperature 99.4 F Pulse Rate 64 63 61 Respiratory 16 17 16 Rate Blood Pressure 125/61 124/61 124/60 Blood Pressure [Left] O2 Sat by Pulse 99 98 98 Oximetry - General physical appearance Narrative Exam: Gen: AAOx3. NAD CV: s1, S2+ Resp; even and unlabored Abd: soft, NT, ND Ext: no c/c/e - Labs 04/14/20 05:37 04/14/20 05:37 Diabetes panel 04/14/20 Range/Units 05:37 Sodium 142 (137-145) mmol/L Potassium 4.0 (3.6-5.0) mmol/L Chloride 107.7 H (98-107) mmol/L Carbon Dioxide 19 L (22-30) mmol/L BUN 16 (9-20) mg/dL Creatinine 0.6 L (0.8-1.3) mg/dL Glucose 68 L (75-100) mg/dL Calcium 8.0 L (8.4-10.2) mg/dL AST 23 (5-40) units/L ALT 6 L (7-56) units/L Alkaline Phosphatase 47 (35-129) units/L Total Protein 5.3 L (6.3-8.2) g/dL Albumin 2.9 L (3.9-5) g/dL Calcium panel 04/14/20 Range/Units 05:37 Calcium 8.0 L (8.4-10.2) mg/dL Albumin 2.9 L (3.9-5) g/dL Pituitary panel 04/14/20 Range/Units 05:37 Sodium 142 (137-145) mmol/L Potassium 4.0 (3.6-5.0) mmol/L Chloride 107.7 H (98-107) mmol/L Carbon Dioxide 19 L (22-30) mmol/L BUN 16 (9-20) mg/dL Creatinine 0.6 L (0.8-1.3) mg/dL Glucose 68 L (75-100) mg/dL Calcium 8.0 L (8.4-10.2) mg/dL Adrenal panel 04/14/20 Range/Units 05:37 Sodium 142 (137-145) mmol/L Potassium 4.0 (3.6-5.0) mmol/L Chloride 107.7 H (98-107) mmol/L Carbon Dioxide 19 L (22-30) mmol/L BUN 16 (9-20) mg/dL Creatinine 0.6 L (0.8-1.3) mg/dL Glucose 68 L (75-100) mg/dL Calcium 8.0 L (8.4-10.2) mg/dL Total Bilirubin 1.30 H (0.1-1.2) mg/dL AST 23 (5-40) units/L ALT 6 L (7-56) units/L Alkaline Phosphatase 47 (35-129) units/L Total Protein 5.3 L (6.3-8.2) g/dL Albumin 2.9 L (3.9-5) g/dL
--- NOTE | 2020-04-14 13:27 | Post Anesthesia Evaluation ---
- Post Anesthesia Evaluation Patient Participated: Yes Airway Patent: Yes Stable Respiratory Function: Yes Nausea/Vomiting: No Temp > 96.8F: Yes Pain Manageable: Yes Adequeate Hydration: Yes Anesthesia Complications: No
--- NOTE | 2020-04-14 13:59 | Progress Note ---
Assessment and Plan - Patient Problems (1) Gastric outlet obstruction Current Visit: Yes Status: Acute Plan to address problem: Etiology unclear Gastric cancer to be ruled out GI consult requested (2) Hypertension Current Visit: Yes Status: Chronic Qualifiers: Hypertension type: essential hypertension Qualified Code(s): I10 - Essential (primary) hypertension Plan to address problem: Continue antihypertensives. If not tolerated by mouth Catapres patch (3) Parkinsonism Current Visit: Yes Status: Chronic Plan to address problem: Continue Sinemet (4) Hyperlipidemia Current Visit: Yes Status: Chronic Qualifiers: Hyperlipidemia type: mixed hyperlipidemia Qualified Code(s): E78.2 - Mixed hyperlipidemia Plan to address problem: Hold statins (5) Anemia Current Visit: Yes Status: Chronic Qualifiers: Anemia type: iron deficiency Iron deficiency anemia type: chronic blood loss Qualified Code(s): D50.0 - Iron deficiency anemia secondary to blood loss (chronic) Plan to address problem: Anemia work-up (6) DVT prophylaxis Current Visit: Yes Status: Acute Plan to address problem: On heparin and GI prophylaxis Subjective Date of service: 04/14/20 Principal diagnosis: Abdominal mass versus severe reflux Interval history: 69-year-old -[place] male with history of parkinsonism, GERD, hyperlipidemia, severe osteoarthritis brought in by for abdominal pain of 2 days duration and distention of the abdomen. Nausea present. Patient was confused and lethargic. No fever or chills. No shortness of breath. No exposure to coronavirus. Objective - Constitutional Vitals: Vital Signs - 12hr 04/14/20 04/14/20 04/14/20 04:50 06:53 07:30 Temperature 98.5 F 98.5 F 98.5 F Pulse Rate 60 61 Respiratory 18 18 20 Rate Blood Pressure 111/58 93/45 Blood Pressure 93/45 [Left] O2 Sat by Pulse 99 99 Oximetry 04/14/20 04/14/20 04/14/20 10:00 10:50 12:15 Temperature 98.4 F 98.4 F 98.8 F Pulse Rate 55 L 55 L 73 Respiratory 16 16 14 Rate Blood Pressure 127/57 127/57 119/59 Blood Pressure [Left] O2 Sat by Pulse 99 99 100 Oximetry 04/14/20 04/14/20 04/14/20 12:20 12:25 12:30 Temperature Pulse Rate 74 70 66 Respiratory 15 13 14 Rate Blood Pressure 113/52 113/56 122/57 Blood Pressure [Left] O2 Sat by Pulse 100 100 99 Oximetry 04/14/20 04/14/20 04/14/20 12:45 12:57 13:05 Temperature 99.4 F Pulse Rate 64 63 61 Respiratory 16 17 16 Rate Blood Pressure 125/61 124/61 124/60 Blood Pressure [Left] O2 Sat by Pulse 99 98 98 Oximetry 04/14/20 13:27 Temperature 98 F Pulse Rate 63 Respiratory 14 Rate Blood Pressure 131/62 Blood Pressure [Left] O2 Sat by Pulse 100 Oximetry General appearance: Present: no acute distress, well-nourished - EENT Eyes: PERRL, EOM intact ENT: hearing intact, clear oral mucosa Ears: bilateral: normal - Neck Neck: supple, normal ROM - Respiratory Respiratory effort: normal Respiratory: bilateral: CTA - Breasts Breasts: normal - Cardiovascular Rhythm: regular Heart Sounds: Present: S1 & S2. Absent: gallop, rub Extremities: pulses intact, No edema, normal color, Full ROM - Gastrointestinal General gastrointestinal: Present: soft, non-tender, non-distended, normal bowel sounds - Genitourinary Male genitourinary: normal - Integumentary Integumentary: clear, warm, dry - Musculoskeletal Musculoskeletal: 1, strength equal bilaterally - Neurologic Neurologic: moves all extremities - Psychiatric Psychiatric: memory intact, appropriate mood/affect, intact judgment & insight - Labs CBC & Chem 7: 04/14/20 05:37 04/14/20 05:37 Labs: Abnormal lab results 04/11/20 04/13/20 04/14/20 Range/Units 17:33 23:10 05:37 RBC 3.08 L 3.02 L (3.65-5.03) M/mm3 Hgb 7.0 L 7.0 L (11.8-15.2) gm/dl Hct 22.1 L 22.1 L (35.5-45.6) % MCV 72 L 73 L (84-94) fl MCH 23 L 23 L (28-32) pg MCHC 31 L (32-34) % RDW 19.3 H 19.0 H (13.2-15.2) % [place] % (Auto) 10.3 H (0.0-7.3) % Lymph # (Auto) 1.1 L (1.2-5.4) K/mm3 Chloride (98-107) mmol/L Carbon Dioxide (22-30) mmol/L Creatinine (0.8-1.3) mg/dL Glucose (75-100) mg/dL Calcium (8.4-10.2) mg/dL Total Bilirubin (0.1-1.2) mg/dL ALT (7-56) units/L Total Protein (6.3-8.2) g/dL Albumin (3.9-5) g/dL Crossmatch See Detail 04/14/20 Range/Units 05:37 RBC (3.65-5.03) M/mm3 Hgb (11.8-15.2) gm/dl Hct (35.5-45.6) % MCV (84-94) fl MCH (28-32) pg MCHC (32-34) % RDW (13.2-15.2) % [place] % (Auto) (0.0-7.3) % Lymph # (Auto) (1.2-5.4) K/mm3 Chloride 107.7 H (98-107) mmol/L Carbon Dioxide 19 L (22-30) mmol/L Creatinine 0.6 L (0.8-1.3) mg/dL Glucose 68 L (75-100) mg/dL Calcium 8.0 L (8.4-10.2) mg/dL Total Bilirubin 1.30 H (0.1-1.2) mg/dL ALT 6 L (7-56) units/L Total Protein 5.3 L (6.3-8.2) g/dL Albumin 2.9 L (3.9-5) g/dL Crossmatch
[2020-04-14] MEDS ORDERED: POLYETHYLENE GLYCOL 3350 17 GM POWDER PO PRN (14:00)
--- NOTE | 2020-04-14 15:06 | Discharge Summary ---
Providers - Providers Date of Admission: 04/11/20 18:19 Date of discharge: 04/14/20 Attending physician: WENDI SCALES 04/11/20 17:01 Consult to Physician [CONS] Urgent Comment: Consulting Provider: BRET CABRERA Physician Instructions: Reason For Exam: Gastric outlet obstruction Primary care physician: MAINTENANCE JOURNEYMAN Hospitalization Condition: Stable Hospital course: Subjective Date of service: 04/14/20 Principal diagnosis: Abdominal mass versus severe reflux Interval history: 69-year-old -[place] male with history of parkinsonism, GERD, hyperlipidemia, severe osteoarthritis brought in by for abdominal pain of 2 days duration and distention of the abdomen. Nausea present. Patient was confused and lethargic. No fever or chills. No shortness of breath. No exposure to coronavirus. In the emergency room, he had a CT scan which showed marked gastric distention consistent with gastric outlet obstruction and had an NG tube placed with over 2 L aspirated out. There was no blood in the aspirate. Since then, the patient has continued to pull out NG tube whenever they are placed, according to the nurse. Patient has a history of peptic ulcer disease and was hospitalized in December of this year. He underwent an upper endoscopy by Dr. Spicer on January 05 which showed a large irregular pyloric channel ulcer that was biopsied. He also had a pinpoint distal duodenal bulb stricture with surrounding ulcer that Dr. Spicer was unable to pass a balloon across for dilation purposes. He was seen by surgery during that admission. The recommendation was for outpatient follow-up on PPI with plans for possible tertiary center referral for definitive surgery. It is unclear if patient was taking a proton pump inhibitor at home as recommended either. Patient does not readily give a clear history, but it does not appear that outpatient follow-up was performed. There is apparently no history of nausea or vomiting. Patient has lost over 50 pounds in the last year. - Patient Problems (1) Gastric outlet obstruction Current Visit: Yes Status: Acute Plan to address problem: Etiology unclear Gastric cancer to be ruled out GI consult appreciated Possible duodenal stricture Patient had duodenal stricture in the past Patient to continue PPIs Surgical consultation EGD 04/14/20: 3 cm, shallow, white-based antral ulcer. Pyloric stricture, dilated to 15 mm. Apical duodenal bulb stricture - dilated to 15 mm. Plan: 1. adv diet as tolerated 2. dc IVF once tolerating diet 3. monitor H/H - transfuse as needed. Responded well to 2 Units PRBC yesterday. 4. DVT ppx 5. bowel regimen - dulcolax DC daily. Add colace PO BID and miralax prn daily 6. continue PPI BID 7. Per GI notes, patient to follow up as outpatient in 1 month for further management. Recs apprecia (2) Hypertension Current Visit: Yes Status: Chronic Qualifiers: Hypertension type: essential hypertension Qualified Code(s): I10 - Essential (primary) hypertension Plan to address problem: Continue antihypertensives. If not tolerated by mouth Catapres patch (3) Parkinsonism Current Visit: Yes Status: Chronic Plan to address problem: Continue Sinemet (4) Hyperlipidemia Current Visit: Yes Status: Chronic Qualifiers: Hyperlipidemia type: mixed hyperlipidemia Qualified Code(s): E78.2 - Mixed hyperlipidemia Plan to address problem: Hold statins (5) Anemia Current Visit: Yes Status: Chronic Qualifiers: Anemia type: iron deficiency Iron deficiency anemia type: chronic blood loss Qualified Code(s): D50.0 - Iron deficiency anemia secondary to blood loss (chronic) Plan to address problem: Anemia work-up (6) DVT prophylaxis Current Visit: Yes Status: Acute Plan to address problem: On heparin and GI prophylaxis Disposition: - TO HOME OR SELFCARE - Discharge Diagnoses (1) Gastric outlet obstruction Status: Acute (2) Hypertension Status: Chronic Qualifiers: Hypertension type: essential hypertension Qualified Code(s): I10 - Essential (primary) hypertension (3) Parkinsonism Status: Chronic (4) Hyperlipidemia Status: Chronic Qualifiers: Hyperlipidemia type: mixed hyperlipidemia Qualified Code(s): E78.2 - Mixed hyperlipidemia (5) Anemia Status: Chronic Qualifiers: Anemia type: iron deficiency Iron deficiency anemia type: chronic blood loss Qualified Code(s): D50.0 - Iron deficiency anemia secondary to blood loss (chronic) (6) DVT prophylaxis Status: Acute Core Measure Documentation - Palliative Care Palliative Care/ Comfort Measures: Not Applicable - Core Measures Any of the following diagnoses?: none Exam - Constitutional Vitals: Temp Pulse Resp BP Pulse Ox 98 F 63 14 131/62 100 04/14/20 13:27 04/14/20 13:27 04/14/20 13:27 04/14/20 13:27 04/14/20 13:27 General appearance: Present: no acute distress, well-nourished - EENT Eyes: Present: PERRL ENT: hearing intact, clear oral mucosa - Neck Neck: Present: supple, normal ROM - Respiratory Respiratory effort: normal Respiratory: bilateral: CTA - Cardiovascular Heart rate: 78 Rhythm: regular Heart Sounds: Present: S1 & S2. Absent: rub, click - Extremities Extremities: pulses symmetrical, No edema Peripheral Pulses: within normal limits - Abdominal General gastrointestinal: Present: soft, non-tender, non-distended, normal bowel sounds Male genitourinary: Present: normal - Rectal Rectal Exam: deferred - Integumentary Integumentary: Present: clear, warm, dry - Musculoskeletal Musculoskeletal: gait normal, strength equal bilaterally - Psychiatric Psychiatric: appropriate mood/affect, intact judgment & insight - Neurologic Neurologic: CNII-XII intact, moves all extremities - Allied Health Allied health notes reviewed: nursing, case management Plan Activity: no restrictions Diet: other (Pured diet) Follow up with: PRIMARY CAREMD [Primary Care Provider] - 3-5 Days ALEJANDRA JENSEN MD [Staff Physician] - 7 Days
[2020-04-14 16:22] VITALS: BP 132/62
[2020-04-14] MEDS ORDERED: PANTOPRAZOLE 40 MG TAB PO SCH (16:30)
[2020-04-14] MEDS ORDERED: PANTOPRAZOLE 40 MG INJ IV SCH (22:00)
[2020-04-14] MEDS ORDERED: DOCUSATE SODIUM 100 MG/10 ML ORAL LIQD PO SCH (22:00)
[2020-04-16] MEDS ORDERED: PANTOPRAZOLE 40 MG TAB PO SCH (10:00)
== END 2020-04-14 17:40 | disposition home or self-care (01) | DRG 380 ==
LOC: ED 10:10 → 3B-SURG 18:19
PROVIDERS: ADMIT Internal Medicine; ATTEND Internal Medicine
PROC: 0D9670Z Drainage of Stomach with Drainage Device, Via Natural or Artificial Opening (ICD-10-PCS; 2020-04-11)
PROC: 30233N1 Transfusion of Nonautologous Red Blood Cells into Peripheral Vein, Percutaneous Approach (ICD-10-PCS; 2020-04-12)
PROC: 0D768ZZ Dilation of Stomach, Via Natural or Artificial Opening Endoscopic (ICD-10-PCS; principal; 2020-04-14)
PROC: 0D798ZZ Dilation of Duodenum, Via Natural or Artificial Opening Endoscopic (ICD-10-PCS; 2020-04-14)
DX: K31.1 Adult hypertrophic pyloric stenosis (principal); G93.41 Metabolic encephalopathy; K56.41 Fecal impaction; F01.50 Vascular dementia, unspecified severity, without behavioral disturbance, psychotic disturbance, mood disturbance, and anxiety; D50.0 Iron deficiency anemia secondary to blood loss (chronic); G20 Parkinson's disease; K21.9 Gastro-esophageal reflux disease without esophagitis; I10 Essential (primary) hypertension; E78.2 Mixed hyperlipidemia; K26.7 Chronic duodenal ulcer without hemorrhage or perforation; M19.90 Unspecified osteoarthritis, unspecified site; Z87.11 Personal history of peptic ulcer disease; Z72.89 Other problems related to lifestyle; Z79.899 Other long term (current) drug therapy; Z90.49 Acquired absence of other specified parts of digestive tract; Z82.49 Family history of ischemic heart disease and other diseases of the circulatory system
CPT/HCPCS: 36415; 74177; 80048; 80053; 81001; 82728; 82962; 83550; 83690; 85025; 85027; 86850; 86900; 86901; 86920; G0378; C1726; C9113; J2060; J2270; J2405; J2704; J7030; J7040; P9016; Q9967

== ENCOUNTER 2021-01-01 10:42 | Outpatient (CLI) | payer MEDICARE ==
[2021-01-01 11:51] LABS: Hematocrit 40.7 % (35.5-45.6); Mean Corpuscular HGB Conc 34 % (32-34); Mean Corpuscular Volume 103 fl (84-94); Platelet Count 284 K/mm3 (140-440); Red Blood Count 3.93 M/mm3 (3.65-5.03); Red Cell Distribution Width 12.8 % (13.2-15.2)
[2021-01-01 11:53] LABS: INR 0.98 (0.87-1.13)
[2021-01-01 11:54] LABS: Partial Thromboplastin Time 26.2 Sec. (24.2-36.6)
[2021-01-01 12:17] LABS: Albumin 4.1 g/dL (3.9-5); Blood Urea Nitrogen 15 mg/dL (9-20); Calcium 9.4 mg/dL (8.4-10.2); Hemolysis Index 47
[2021-01-01 12:19] LABS: Alanine Aminotransferase < 5 units/L (7-56); BUN/Creatinine Ratio 21
--- NOTE | 2021-01-01 14:14 | Electrocardiograph Report ---
[facility] Test Date: 2021-01-01 Test Time: 11:38:36 Pat Name: LYDIA ARIAS Department: Room: Gender: M Electron Beam Operator: MADIHA : 1950 Requested By: WENDI SCALES Order Number: [id number] Reading MD: Vane Del Rosario Measurements Intervals [place] Rate: 52 P: 71 GA: 178 QRS: 26 QRSD: 90 T: 35 QT: 459 QTc: 428 Interpretive Statements Sinus bradycardia No previous ECG available for comparison Electronically Signed On 01-01-2021 14:13:51 EDT by Vane Del Rosario
== END 2021-01-01 10:43 | disposition home or self-care (01) ==
LOC: CARD 10:42
PROVIDERS: ATTEND Internal Medicine
DX: R53.83 Other fatigue (principal)
CPT/HCPCS: 36415; 80053; 85027; 85610; 85730; 93005